=== PATIENT | female | born 1985 ===

== ENCOUNTER 2021-03-06 14:03 | Inpatient (IN) | payer OTHER, SELFPAY ==
[2021-03-06] VITALS (8 sets, daily range): BP systolic 115–1122; BP diastolic 61–68; PULSE 89–123; RESP 16–19; TEMP 36.9–37.4; O2SAT 99–100; BMI 31.3
--- NOTE | ~2021-03-06 | CT_ITS ---
EXAMINATION: CT ABDOMEN AND PELVIS WITH CONTRAST CLINICAL INFORMATION: left sided abd pain, melena, high fever COMPARISON: None TECHNIQUE: Multidetector volumetric images were obtained from the superior aspect of the liver through the pubic symphysis following administration 85 mL of Omnipaque 350 intravenous contrast. Sagittal and coronal reformatted images were obtained on the technologist's workstation. Oral contrast: No This CT examination was performed using dose optimization techniques as appropriate, variously including the following: *Automated exposure control *Adjustment of mA and/or kV according to patient size (this includes techniques or standardized protocols for targeted exams where dose is matched to indication/reason for exam; i.e. extremities or head) *Use of iterative reconstruction technique DLP: 622 mGy-cm FINDINGS: LUNG BASES: Mild dependent atelectasis. LIVER, GALLBLADDER, AND BILIARY TREE: The liver is normal in size, shape, and attenuation. No focal hepatic lesion or biliary ductal dilatation is present. The gallbladder is unremarkable with no evidence of radiopaque gallstones, gallbladder wall thickening, or obvious pericholecystic inflammatory changes. PANCREAS: Unremarkable. SPLEEN: Measures 14.7 cm in diameter, consistent with splenomegaly, relatively mild. No focal abnormalities. ADRENAL GLANDS: Unremarkable. KIDNEYS AND URETERS: The kidneys are normal in size, shape, and attenuation. No calculi. No perinephric stranding. Prominence of the bilateral extrarenal pelvises no hydronephrosis or hydroureter. BLADDER: Unremarkable. GASTROINTESTINAL TRACT: Status post Michelle-en-Y gastric bypass. Stomach, small bowel, and colon are nondistended. There is very mild generalized colonic wall thickening with calcific and surrounding fat stranding. Appendix is normal. Air-fluid levels are present in the colon, indicative of liquid stool. No intraperitoneal free air. No significant intraperitoneal free fluid. ABDOMINAL WALL: No significant hernia is appreciated. LYMPH NODES: Numerous subcentimeter mesenteric lymph nodes are identified measuring up to 0.9 cm in diameter (short axis). No significant retroperitoneal adenopathy. VASCULAR: Unremarkable. PELVIC VISCERA: Uterus is normal in size. Bilateral Essure devices are present in the following tubes. No adnexal lesions are identified. OSSEOUS STRUCTURES: Minimal degenerative spondylosis and lumbar spine. No acute osseous findings. Mild left convex curvature. CT/CT abdomen pelvis w con IMPRESSION: 1. Very mild colonic wall thickening with with stool throughout the large bowel, potentially due to a mild enterocolitis. Inflammatory causes are also possible. No abscess. Prominent mesenteric lymph nodes may be reactive in nature. 2. Borderline splenomegaly.
[2021-03-06 16:26] LABS: Glucose Urine UA NEG (NEG); Leukocyte Esterase Urine NEG (NEG); Nitrite Urine NEG (NEG); Specific Gravity - Urine >= 1.030 (1.005-1.025); Urine Blood 2+ (NEG); Urine Ketones 5 MG/DL (NEG); Urine Protein 2+ MG/DL (NEG-TRACE)
[2021-03-06 16:33] LABS: Appearance Urine CLEAR; Color Urine YELLOW
[2021-03-06 16:44] LABS: UACC CULT YES
[2021-03-06 16:45] LABS: Alanine Aminotransferase 6 U/L (0-31); Albumin Level 4.1 g/dL (3.5-5.0); Alkaline Phosphatase 104 U/L (39-117); Anion Gap 16 (12-20); Aspartate Amino Transferase 18 U/L (5-31); Bacteria Urine 1+ /LPF; Bilirubin Direct 0.5 mg/dL (0.0-0.5); Bilirubin Total 1.3 mg/dL (0.0-1.0); Blood Urea Nitrogen 7 mg/dL (9-16); Calcium 8.8 mg/dL (8.4-10.2); Carbon Dioxide 21 mmol/L (22-29); Chloride 102 mmol/L (96-108); Creatinine Clr Calc Pharmacy 115.6; Estimated Glomerular Filt Rate > 60; Glucose Random 106 mg/dL (60-115); Hematocrit 27.6 % (37-47); Imm Gran Abs Auto 0.03 X10*3/uL (0.00-0.03); Imm Gran Pct Auto 0.4 % (0.0-0.4); Lipase 13 U/L (8-78); MANUAL DIFF FLAG SCAN; Mucus Urine 1+ /LPF; Neutrophils Percent Auto 76.9 % (45-73); Potassium 3.9 mmol/L (3.3-5.1); SCAN SMEAR FLAG 1; Sodium 135 mmol/L (135-145); Squamous Epithelial Cell Urine 4+ /LPF; Total Protein 6.9 g/dL (6.5-8.0); UPreg QC Valid YES; Urine Pregnancy NEGATIVE (NEGATIVE)
[2021-03-06 16:47] LABS: Basophils Percent Auto 0.2 % (0-2); Lymphocytes Absolute Auto 1.1 X10*3/uL (1.2-4.9); Lymphocytes Percent Auto 13.2 % (20-40); Mean Corpuscular HGB Conc 24.6 g/dl (31.0-35.0); Mean Corpuscular Hemoglobin 15.1 pg (27.0-33.0); Monocytes Absolute Auto 0.8 X10*3/uL (0.1-1.2); Monocytes Percent Auto 9.3 % (2-11); Neutrophils Absolute Auto 6.4 X10*3/uL (2.0-8.3); Platelet Count 320 X10*3/uL (160-400); Red Cell Distribution Width 20.1 % (11.0-16.0); White Blood Count 8.4 X10*3/uL (4.8-10.8)
[2021-03-06 16:49] LABS: COVID-19 Test Negative (Negative); IDNOW Serial# 9DD0AD1C
[2021-03-06 16:55] LABS: Mean Corpuscular Volume 61.3 fL (80-98)
[2021-03-06 16:57] LABS: Hemoglobin 6.8 g/dl (12.0-16.0); PLT ABN DIST 1
--- NOTE | 2021-03-06 17:20 | ED.ABDPAIN ---
HPI - Abdominal Pain General Chief Complaint: Abdominal Pain Stated Complaint: fever/nausea/vomiting/ Time Seen by Provider: 03/06/21 17:05 Source: patient Mode of arrival: ambulatory Limitations: no limitations History of Present Illness HPI narrative: 35 y/o female with history of gastric bypass in 2011 who presents to the ER with severe left sided abdominal pain and multiple episodes of black diarrhea that woke her up out of sleep at 3am yesterday. She states anytime she tries to eat or drinking anything she has watery black stool. She also reports fevers at home the last 2 days, as high as 105 (on temporal thermometer). She took Tylenol with improvement in the fever. She denies being on any blood thinners or aspirin, she does not take NSAIDS. She does not drink alcohol. She has never had any GI bleeding in the past. She denies any nausea or vomiting. MD elicited complaint: abdominal pain Pertinent past history: none Onset (ago): day(s) (2) Pain Consistency: constant Location: LUQ and LLQ Severity: moderate Pain scale (0-10): 7 Quality: stabbing Radiation: none Migration to: no migration Exacerbating factors: eating Relieving factors: nothing Associated symptoms: diarrhea and fever Related Data Home Medications Medication Instructions Recorded Confirmed No Known Home Meds 03/06/21 03/06/21 Allergies Allergy/AdvReac Type Severity Reaction Status Date / Time No Known Allergies Allergy Unverified 05/18/20 19:07 [No Known Allergies*] Review of Systems Review of Systems Constitutional: No Fever, No Chills ENT/Mouth: No sore throat, No Rhinorrhea, No Swallowing Difficulty Cardiovascular: No Chest Pain, + SOB Respiratory: No Cough, No Sputum, No Wheezing, No dyspnea Gastrointestinal: No Nausea, No Vomiting, + Diarrhea, + abdominal Pain, No Hematochezia, + Melena Genitourinary: No Dysuria, No Urinary Frequency, No Hematuria Musculoskeletal: No joint pain, No Myalgias Skin: No Skin Lesions, No rash Neuro: + Weakness, No Numbness, No Dizziness, No Headache Psych: + Anxiety/Panic, No Depression Heme/Lymph: No Bruising, No Lymphadenopathy Endocrine: No Polyuria, No Polydipsia Physical Exam Vital Signs: Vital Signs: Last Vital Signs Temp 99.4 F 03/06/21 14:37 Pulse 123 H 03/06/21 14:37 Resp 16 03/06/21 19:32 BP 115/68 03/06/21 14:37 Pulse Ox 100 03/06/21 14:37 Body Mass Index 31.3 Appearance: Alert. Oriented X3. No acute distress. Eyes: Pupils equal, round and reactive to light. Conjunctival pallor ENT: Pharynx normal. Neck: Normal inspection. Neck supple. CVS: Tachycardic, regular rhythm. Pulses normal. Respiratory: No respiratory distress. Breath sounds normal. Abdomen: Soft with moderate left sided tenderness, no rebound or guarding. +BS x4 Skin: Skin warm and dry. Normal skin color. Normal skin turgor. No rashes. Extremities: No lower extremity edema. Neuro: Oriented X 3. No motor deficit. No sensory deficit. Course Course Course Narrative: 35 y/o female presenting with melena, left sided abdominal pain and fevers at home x2 days. Tachycardic to 120s on arrival with stable BP. She is pale. Blood work obtained while in the waiting room and she was found to have a hemoglobin of 6.8. Her baseline H/H from 3 years ago 7.3/25.6. Will plan to transfuse PRBC, check iron studies, CT scan abd/pelvis with contrast for pain and fevers. Concern is for UGIB. IV Protonix ordered and GI (Dr. Gonzalez) has been contacted - recommending transfuse to Hgb 8 with EGD/colonoscopy tomorrow. Reevaluation(s) Reevaluation #1: Pain improved with IV dilaudid. Receiving PRBC now. Lactic acid normal and HR improved with pain control and IVF. CT scan showing very mild colonic wall thickening with stool throughout the colon, mild enterocolitis, inflammatory causes also possible. No abscess. Will give IV rocephin and Flagyl for colitis. Spoke with Dr. Mccord who will admit the patient for further management. Consultations Consultation #1: Dr. Gonzalez - GI MDM - Abdominal Pain Lab Data Result diagrams: 03/06/21 16:15 03/06/21 16:15 Labs: Lab Results 03/06/21 03/06/21 03/06/21 Range/Units 16:15 16:15 16:15 WBC 8.4 (4.8-10.8) X10*3/uL RBC 4.50 (4.20-5.50) X10*6/uL Hgb 6.8 L* (12.0-16.0) g/dl Hct 27.6 L (37-47) % MCV 61.3 L (80-98) fL MCH 15.1 L (27.0-33.0) pg MCHC 24.6 L (31.0-35.0) g/dl RDW 20.1 H (11.0-16.0) % Plt Count 320 (160-400) X10*3/uL MPV Not Reportable Immature Gran % (Auto) 0.4 (0.0-0.4) % Neut % (Auto) 76.9 H (45-73) % Lymph % (Auto) 13.2 L (20-40) % [place] % (Auto) 9.3 (2-11) % Eos % (Auto) 0.0 (0-4) % Baso % (Auto) 0.2 (0-2) % Lymph # (Auto) 1.1 L (1.2-4.9) X10*3/uL [place] # (Auto) 0.8 (0.1-1.2) X10*3/uL Eos # (Auto) 0.0 (0.0-0.4) X10*3/uL Baso # (Auto) 0.0 (0.0-0.2) X10*3/uL Abs Immat Gran (auto) 0.03 (0.00-0.03) X10*3/uL Absolute Neuts (auto) 6.4 (2.0-8.3) X10*3/uL Absolute Nucleated RBC 0.000 (0.0-0.012) X10*3/uL Nucleated RBC % (auto) 0.0 (0.0-0.2) /100WBC Smear Tech's Comments VERIFIED ESR (0-20) MM/HR Absolute Retic (0.026-0.095) X10*6/uL Percent Retic (0.5-1.8) % Immature Retic Fraction (3.0-15.9) % Retic Hgb Equivalent (30.0-35.0) pg Sodium 135 (135-145) mmol/L Potassium 3.9 (3.3-5.1) mmol/L Chloride 102 (96-108) mmol/L Carbon Dioxide 21 L (22-29) mmol/L Anion Gap 16 (12-20) BUN 7 L (9-16) mg/dL Creatinine 0.77 (0.5-1.4) mg/dL Estim Creat Clear Calc 115.6 Estimated GFR > 60 Random Glucose 106 (60-115) mg/dL Lactic Acid (0.5-2.0) mmol/L Calcium 8.8 (8.4-10.2) mg/dL Iron 9 L (30-160) mcg/dL TIBC 523 H (228-428) mcg/dL % Saturation 2 L (15-50) % Unsat Iron Binding 514 ug/dL Total Bilirubin 1.3 H (0.0-1.0) mg/dL Direct Bilirubin 0.5 (0.0-0.5) mg/dL AST 18 (5-31) U/L ALT 6 (0-31) U/L Alkaline Phosphatase 104 (39-117) U/L C-Reactive Protein 16.99 H (< or = 0.50) mg/dL Total Protein 6.9 (6.5-8.0) g/dL Albumin 4.1 (3.5-5.0) g/dL Lipase 13 (8-78) U/L Urine Color Urine Appearance Urine pH (5.0-8.0) Ur Specific [place] (1.005-1.025) Urine Protein (NEG-TRACE) MG/DL Urine Glucose (UA) (NEG) MG/DL Urine Ketones (NEG) MG/DL Urine Blood (NEG) Urine Nitrite (NEG) Ur Leukocyte Esterase (NEG) Urine RBC (0) /HPF Urine WBC (0-4) /HPF Ur Squamous Epith Cells /LPF Urine Bacteria /LPF Urine Mucus /LPF Urine Test (NEGATIVE) Stool Collect Date Stool Occult Blood Stool 2 Collect Date Stool Occult Blood #2 Stool 3 Collect Date Stool Occult Blood #3 COVID-19 ([place]) Negative (Negative) COVID-19 Clin Com See Note Blood Type Antibody Screen Crossmatch 03/06/21 03/06/21 03/06/21 Range/Units 16:15 16:15 16:15 WBC (4.8-10.8) X10*3/uL RBC (4.20-5.50) X10*6/uL Hgb (12.0-16.0) g/dl Hct (37-47) % MCV (80-98) fL MCH (27.0-33.0) pg MCHC (31.0-35.0) g/dl RDW (11.0-16.0) % Plt Count (160-400) X10*3/uL MPV Immature Gran % (Auto) (0.0-0.4) % Neut % (Auto) (45-73) % Lymph % (Auto) (20-40) % [place] % (Auto) (2-11) % Eos % (Auto) (0-4) % Baso % (Auto) (0-2) % Lymph # (Auto) (1.2-4.9) X10*3/uL [place] # (Auto) (0.1-1.2) X10*3/uL Eos # (Auto) (0.0-0.4) X10*3/uL Baso # (Auto) (0.0-0.2) X10*3/uL Abs Immat Gran (auto) (0.00-0.03) X10*3/uL Absolute Neuts (auto) (2.0-8.3) X10*3/uL Absolute Nucleated RBC (0.0-0.012) X10*3/uL Nucleated RBC % (auto) (0.0-0.2) /100WBC Smear Tech's Comments ESR (0-20) MM/HR Absolute Retic 0.054 (0.026-0.095) X10*6/uL Percent Retic 1.2 (0.5-1.8) % Immature Retic Fraction 24.9 H (3.0-15.9) % Retic Hgb Equivalent 14.6 L (30.0-35.0) pg Sodium (135-145) mmol/L Potassium (3.3-5.1) mmol/L Chloride (96-108) mmol/L Carbon Dioxide (22-29) mmol/L Anion Gap (12-20) BUN (9-16) mg/dL Creatinine (0.5-1.4) mg/dL Estim Creat Clear Calc Estimated GFR Random Glucose (60-115) mg/dL Lactic Acid (0.5-2.0) mmol/L Calcium (8.4-10.2) mg/dL Iron (30-160) mcg/dL TIBC (228-428) mcg/dL % Saturation (15-50) % Unsat Iron Binding ug/dL Total Bilirubin (0.0-1.0) mg/dL Direct Bilirubin (0.0-0.5) mg/dL AST (5-31) U/L ALT (0-31) U/L Alkaline Phosphatase (39-117) U/L C-Reactive Protein (< or = 0.50) mg/dL Total Protein (6.5-8.0) g/dL Albumin (3.5-5.0) g/dL Lipase (8-78) U/L Urine Color YELLOW Urine Appearance CLEAR Urine pH 6.0 (5.0-8.0) Ur Specific [place] >= 1.030 H (1.005-1.025) Urine Protein 2+ H (NEG-TRACE) MG/DL Urine Glucose (UA) NEG (NEG) MG/DL Urine Ketones 5 (NEG) MG/DL Urine Blood 2+ H (NEG) Urine Nitrite NEG (NEG) Ur Leukocyte Esterase NEG (NEG) Urine RBC 1-4 (0) /HPF Urine WBC 5-9 H (0-4) /HPF Ur Squamous Epith Cells 4+ /LPF Urine Bacteria 1+ /LPF Urine Mucus 1+ /LPF Urine Test NEGATIVE (NEGATIVE) Stool Collect Date Stool Occult Blood Stool 2 Collect Date Stool Occult Blood #2 Stool 3 Collect Date Stool Occult Blood #3 COVID-19 ([place]) (Negative) COVID-19 Clin Com Blood Type Antibody Screen Crossmatch 03/06/21 03/06/21 03/06/21 Range/Units 17:25 17:50 18:03 WBC (4.8-10.8) X10*3/uL RBC (4.20-5.50) X10*6/uL Hgb (12.0-16.0) g/dl Hct (37-47) % MCV (80-98) fL MCH (27.0-33.0) pg MCHC (31.0-35.0) g/dl RDW (11.0-16.0) % Plt Count (160-400) X10*3/uL MPV Immature Gran % (Auto) (0.0-0.4) % Neut % (Auto) (45-73) % Lymph % (Auto) (20-40) % [place] % (Auto) (2-11) % Eos % (Auto) (0-4) % Baso % (Auto) (0-2) % Lymph # (Auto) (1.2-4.9) X10*3/uL [place] # (Auto) (0.1-1.2) X10*3/uL Eos # (Auto) (0.0-0.4) X10*3/uL Baso # (Auto) (0.0-0.2) X10*3/uL Abs Immat Gran (auto) (0.00-0.03) X10*3/uL Absolute Neuts (auto) (2.0-8.3) X10*3/uL Absolute Nucleated RBC (0.0-0.012) X10*3/uL Nucleated RBC % (auto) (0.0-0.2) /100WBC Smear Tech's Comments ESR 12 (0-20) MM/HR Absolute Retic (0.026-0.095) X10*6/uL Percent Retic (0.5-1.8) % Immature Retic Fraction (3.0-15.9) % Retic Hgb Equivalent (30.0-35.0) pg Sodium (135-145) mmol/L Potassium (3.3-5.1) mmol/L Chloride (96-108) mmol/L Carbon Dioxide (22-29) mmol/L Anion Gap (12-20) BUN (9-16) mg/dL Creatinine (0.5-1.4) mg/dL Estim Creat Clear Calc Estimated GFR Random Glucose (60-115) mg/dL Lactic Acid 1.2 (0.5-2.0) mmol/L Calcium (8.4-10.2) mg/dL Iron (30-160) mcg/dL TIBC (228-428) mcg/dL % Saturation (15-50) % Unsat Iron Binding ug/dL Total Bilirubin (0.0-1.0) mg/dL Direct Bilirubin (0.0-0.5) mg/dL AST (5-31) U/L ALT (0-31) U/L Alkaline Phosphatase (39-117) U/L C-Reactive Protein (< or = 0.50) mg/dL Total Protein (6.5-8.0) g/dL Albumin (3.5-5.0) g/dL Lipase (8-78) U/L Urine Color Urine Appearance Urine pH (5.0-8.0) Ur Specific [place] (1.005-1.025) Urine Protein (NEG-TRACE) MG/DL Urine Glucose (UA) (NEG) MG/DL Urine Ketones (NEG) MG/DL Urine Blood (NEG) Urine Nitrite (NEG) Ur Leukocyte Esterase (NEG) Urine RBC (0) /HPF Urine WBC (0-4) /HPF Ur Squamous Epith Cells /LPF Urine Bacteria /LPF Urine Mucus /LPF Urine Test (NEGATIVE) Stool Collect Date Stool Occult Blood Stool 2 Collect Date Stool Occult Blood #2 Stool 3 Collect Date Stool Occult Blood #3 COVID-19 ([place]) (Negative) COVID-19 Clin Com Blood Type A Positive Antibody Screen NEGATIVE Crossmatch See Detail 03/06/21 03/06/21 Range/Units 18:03 18:03 WBC (4.8-10.8) X10*3/uL RBC (4.20-5.50) X10*6/uL Hgb (12.0-16.0) g/dl Hct (37-47) % MCV (80-98) fL MCH (27.0-33.0) pg MCHC (31.0-35.0) g/dl RDW (11.0-16.0) % Plt Count (160-400) X10*3/uL MPV Immature Gran % (Auto) (0.0-0.4) % Neut % (Auto) (45-73) % Lymph % (Auto) (20-40) % [place] % (Auto) (2-11) % Eos % (Auto) (0-4) % Baso % (Auto) (0-2) % Lymph # (Auto) (1.2-4.9) X10*3/uL [place] # (Auto) (0.1-1.2) X10*3/uL Eos # (Auto) (0.0-0.4) X10*3/uL Baso # (Auto) (0.0-0.2) X10*3/uL Abs Immat Gran (auto) (0.00-0.03) X10*3/uL Absolute Neuts (auto) (2.0-8.3) X10*3/uL Absolute Nucleated RBC (0.0-0.012) X10*3/uL Nucleated RBC % (auto) (0.0-0.2) /100WBC Smear Tech's Comments ESR (0-20) MM/HR Absolute Retic (0.026-0.095) X10*6/uL Percent Retic (0.5-1.8) % Immature Retic Fraction (3.0-15.9) % Retic Hgb Equivalent (30.0-35.0) pg Sodium (135-145) mmol/L Potassium (3.3-5.1) mmol/L Chloride (96-108) mmol/L Carbon Dioxide (22-29) mmol/L Anion Gap (12-20) BUN (9-16) mg/dL Creatinine (0.5-1.4) mg/dL Estim Creat Clear Calc Estimated GFR Random Glucose (60-115) mg/dL Lactic Acid (0.5-2.0) mmol/L Calcium (8.4-10.2) mg/dL Iron (30-160) mcg/dL TIBC (228-428) mcg/dL % Saturation (15-50) % Unsat Iron Binding ug/dL Total Bilirubin (0.0-1.0) mg/dL Direct Bilirubin (0.0-0.5) mg/dL AST (5-31) U/L ALT (0-31) U/L Alkaline Phosphatase (39-117) U/L C-Reactive Protein (< or = 0.50) mg/dL Total Protein (6.5-8.0) g/dL Albumin (3.5-5.0) g/dL Lipase (8-78) U/L Urine Color Urine Appearance Urine pH (5.0-8.0) Ur Specific [place] (1.005-1.025) Urine Protein (NEG-TRACE) MG/DL Urine Glucose (UA) (NEG) MG/DL Urine Ketones (NEG) MG/DL Urine Blood (NEG) Urine Nitrite (NEG) Ur Leukocyte Esterase (NEG) Urine RBC (0) /HPF Urine WBC (0-4) /HPF Ur Squamous Epith Cells /LPF Urine Bacteria /LPF Urine Mucus /LPF Urine Test (NEGATIVE) Stool Collect Date Cancelled Stool Occult Blood Cancelled NEGATIVE Stool 2 Collect Date Cancelled Stool Occult Blood #2 Cancelled Stool 3 Collect Date Cancelled Stool Occult Blood #3 Cancelled COVID-19 ([place]) (Negative) COVID-19 Clin Com Blood Type Antibody Screen Crossmatch Critical Care Time Critical Care Time Critical Care Time: Yes Total Critical Care Time: 42 Attestation: I have personally provided critical care time exclusive of time spent on separately billable procedures. Time includes review of lab data, radiology results, discussion with consultants, and monitoring for potential decompensation. Intervention performed as documented. Discharge Plan Discharge Clinical Impression: Acute blood loss anemia, Enterocolitis Patient Disposition: Admitted As Inpatient [facility] Past Medical History Attestation statement: The following information was validated with the patient. Surgical History (Updated 03/06/21 @ 14:40 by Tra Concepcion) Gastric bypass status for obesity Social History Social History Advance Directives: No Advance Directives Information Provided: No Patient : No
[2021-03-06] MEDS: Pantoprazole Sodium 40 MG/10 ML VIAL IVPUSH (17:25)
[2021-03-06] MEDS: HYDROmorphone HCl 0.5 MG/0.5 ML SYRINGE IVPUSH ×2 (17:25→19:40)
[2021-03-06 17:27] LABS: SLIDE REVIEW VERIFIED
[2021-03-06 17:49] LABS: C Reactive Protein 16.99 mg/dL (< or = 0.50); Iron 9 mcg/dL (30-160); Percent Iron Saturation 2 % (15-50); Total Iron Binding Capacity 523 mcg/dL (228-428); Unsaturated Iron Binding 514 ug/dL
[2021-03-06 17:50] LABS: Immature Retic Fraction 24.9 % (3.0-15.9); Retic HGB Equivalent 14.6 pg (30.0-35.0); Reticulocyte Percent 1.2 % (0.5-1.8); Reticulocytes Absolute 0.054 X10*6/uL (0.026-0.095)
[2021-03-06 18:01] LABS: Lactic Acid 1.2 mmol/L (0.5-2.0)
[2021-03-06] MEDS: 0.9 % Sodium Chloride 1,000 ML 999 ML IVCONT (18:10)
[2021-03-06 18:51] LABS: OBS Int Ctl Valid YES; OBS1 NEGATIVE (NEGATIVE)
[2021-03-06 19:11] LABS: Erythrocyte Sedimentation Rate 12 MM/HR (0-20)
--- NOTE | 2021-03-06 19:15 | PC.NURSE ---
assumed care of pt. pt resting in stretcher just returning from ct. pt denies any complaints at time. pt awaiting for pending orders. will continue to monitor pt.
--- NOTE | 2021-03-06 19:27 | PHA.MEDREC ---
Pharmacy Consult ? Medication Reconciliation Pharmacy has completed the medication reconciliation.Pt denies any regular meds.
[2021-03-06] MEDS: iohexoL 350 MG/ML 100 ML INFUS..BTL IV (19:42)
--- NOTE | 2021-03-06 20:00 | PC.NURSE ---
PT ON MONITOR WITH HR 104. PT AWAITING FOR BLOOD. PT C/O ABD PAIN AND MEDICATED PER EMAR FOR ABD PAIN 05/11.
[2021-03-06] MEDS: metroNIDAZOLE/NS 500 MG/100 ML PIGGYBACK 100 MG IV (20:20)
[2021-03-06] MEDS: cefTRIAXone sodium 1 GM in 0.9 % Sodium Chloride 50 ML IV (20:24)
--- NOTE | 2021-03-06 21:45 | PC.NURSE ---
1 UNIT OF PRBC INFUSING PER ORDERS. PT DENIES ANY COMPLAINTS OR REACTIONS TO BLOOD. PT NERVOUS ABOUT GETTING BLOOD AND IS REASSURED. PT STATES I FEEL BETTER NOW . WILL CONTINUE TO MONITOR PT.
--- NOTE | 2021-03-06 22:02 | P.HPHOSP_ITS ---
History of Present Illness Date of Service: 03/06/21 Chief Complaint: Nausea /abdominal pain /diarrhea 35-year-old female with no significant past medical history presented to the hospital with a chief complaint of nausea vomiting and abdominal discomfort. Patient reported that she has been having nausea vomiting and loose stools over the past couple days and noted to have left-sided abdominal pain. Denies any numbness tingling. Reports her stool is black in color. Denies any chest pain or palpitations. Denies any urinary symptoms. Denies being on antibiotics are taking [id number] pain medications. Patient reports her menstrual cycles are regular, denies any excessive bleeding. Review of all other systems is negative except mentioned above ER course: Per ER team patient noted to have left-sided abdominal tenderness, CT scan showed enterocolitis. Given antibiotics. On the last patient also noted to have anemia with hemoglobin 6.8. Stool guaiac was negative. Patient being transfused blood. ER team also spoke to Dr. Taylor from Gastroenterology and plan for endoscopy tomorrow morning. PMFSH Family History Mother Hypertension Surgical History Gastric bypass status for obesity Social History Household Members: Spouse and Children Housing: Apartment Do you presently have visiting nurse or other home services: No Alcohol intake: never Patient Tobacco Use Status: Never used Tobacco e-Cigarette/Vaping Use: Never Used Second Hand Smoke Exposure: No service: No Current occupational status: employed Current occupational exposures/hazards: No Meds Allergies Allergy/AdvReac Type Severity Reaction Status Date / Time No Known Allergies Allergy Verified 03/21/21 13:17 [No Known Allergies*] Active Medications: Current Medications Generic Name Dose Route Start Last Admin Trade Name Freq PRN Reason Stop Dose Admin Acetaminophen 650 mg 03/06/21 21:57 Acetaminophen 325 Mg Tablet PO Q6H PRN Pain, Mild (Pain Scale 1-3) Dextrose/Sodium Chloride 1,000 mls @ 100 mls/hr 03/06/21 22:00 D51/2ns IVCONT .Q10H SUNDAY Metronidazole 500 mg in 100 mls @ 100 mls/hr 03/06/21 22:00 Flagyl IV Q8H [facility] Ceftriaxone Sodium 1 gm/ 50 mls @ 100 mls/hr 03/06/21 22:00 Sodium Chloride IV Q24H [facility] Melatonin 6 mg 03/06/21 21:57 Melatonin 3 Mg Tablet PO BEDTIME PRN Insomnia Ondansetron HCl 4 mg 03/06/21 21:57 Ondansetron Hcl 4 Mg/2 Ml Vial IVPUSH Q8H PRN Nausea and Vomiting Pharmacy Consult 1 each 03/06/21 17:20 Consult Rx Perform Med Rec MISCELLANE ONCE PRN Consult order Sodium Chloride 3 ml 03/07/21 00:00 0.9 % Sodium Chloride Flush 3 Ml Syringe IVFLUSH QSHIFT [facility] Physical Exam Vital Signs and Narrative: Vital Signs: Last Vital Signs Temp 98.8 F 03/06/21 22:02 Pulse 101 H 03/06/21 22:02 Resp 16 03/06/21 22:02 BP 121/67 03/06/21 22:02 Pulse Ox 99 03/06/21 21:50 Body Mass Index 31.3 Gen: Appears be in no acute distress HEENT: NCAT, Moist mucosa. Pulmonary: Vesicular breath sounds, fair air entry CVS: Normal S1-S2 Abdomen: BS+, Soft, Mildly tender in the left lower quadrant: No guarding no rigidity. Extremities: Warm well perfused Neuro: Alert and awake. Results Labs CBC and Chem 7: 03/08/21 05:53 03/08/21 05:53 Labs: Laboratory Results - last 24 hr 03/06/21 03/06/21 03/06/21 16:15 16:15 16:15 MCV 61.3 L MCH 15.1 L MCHC 24.6 L RDW 20.1 H Plt Count 320 MPV Not Reportable Immature Gran % (Auto) 0.4 Neut % (Auto) 76.9 H Lymph % (Auto) 13.2 L [place] % (Auto) 9.3 Eos % (Auto) 0.0 Baso % (Auto) 0.2 Lymph # (Auto) 1.1 L [place] # (Auto) 0.8 Eos # (Auto) 0.0 Baso # (Auto) 0.0 Abs Immat Gran (auto) 0.03 Absolute Neuts (auto) 6.4 Absolute Nucleated RBC 0.000 Nucleated RBC % (auto) 0.0 Smear Tech's Comments VERIFIED ESR Absolute Retic Percent Retic Immature Retic Fraction Retic Hgb Equivalent Anion Gap 16 Estim Creat Clear Calc 115.6 Estimated GFR > 60 Random Glucose 106 Lactic Acid Calcium 8.8 Iron 9 L TIBC 523 H % Saturation 2 L Unsat Iron Binding 514 Total Bilirubin 1.3 H Direct Bilirubin 0.5 AST 18 ALT 6 Alkaline Phosphatase 104 C-Reactive Protein 16.99 H Total Protein 6.9 Albumin 4.1 Lipase 13 Urine Color Urine Appearance Urine pH Ur Specific [place] Urine Protein Urine Glucose (UA) Urine Ketones Urine Blood Urine Nitrite Ur Leukocyte Esterase Urine RBC Urine WBC Ur Squamous Epith Cells Urine Bacteria Urine Mucus Urine Test Stool Collect Date Stool Occult Blood Stool 2 Collect Date Stool Occult Blood #2 Stool 3 Collect Date Stool Occult Blood #3 COVID-19 ([place]) Negative [id number] See Note Blood Type Antibody Screen Crossmatch 03/06/21 03/06/21 03/06/21 16:15 16:15 16:15 MCV MCH MCHC RDW Plt Count MPV Immature Gran % (Auto) Neut % (Auto) Lymph % (Auto) [place] % (Auto) Eos % (Auto) Baso % (Auto) Lymph # (Auto) [place] # (Auto) Eos # (Auto) Baso # (Auto) Abs Immat Gran (auto) Absolute Neuts (auto) Absolute Nucleated RBC Nucleated RBC % (auto) Smear Tech's Comments ESR Absolute Retic 0.054 Percent Retic 1.2 Immature Retic Fraction 24.9 H Retic Hgb Equivalent 14.6 L Anion Gap Estim Creat Clear Calc Estimated GFR Random Glucose Lactic Acid Calcium Iron TIBC % Saturation Unsat Iron Binding Total Bilirubin Direct Bilirubin AST ALT Alkaline Phosphatase C-Reactive Protein Total Protein Albumin Lipase Urine Color YELLOW Urine Appearance CLEAR Urine pH 6.0 Ur Specific [place] >= 1.030 H Urine Protein 2+ H Urine Glucose (UA) NEG Urine Ketones 5 Urine Blood 2+ H Urine Nitrite NEG Ur Leukocyte Esterase NEG Urine RBC 1-4 Urine WBC 5-9 H Ur Squamous Epith Cells 4+ Urine Bacteria 1+ Urine Mucus 1+ Urine Test NEGATIVE Stool Collect Date Stool Occult Blood Stool 2 Collect Date Stool Occult Blood #2 Stool 3 Collect Date Stool Occult Blood #3 COVID-19 ([place]) COVID-19 [employer] Com Blood Type Antibody Screen Crossmatch 03/06/21 03/06/21 03/06/21 17:25 17:50 18:03 MCV MCH MCHC RDW Plt Count MPV Immature Gran % (Auto) Neut % (Auto) Lymph % (Auto) [place] % (Auto) Eos % (Auto) Baso % (Auto) Lymph # (Auto) [place] # (Auto) Eos # (Auto) Baso # (Auto) Abs Immat Gran (auto) Absolute Neuts (auto) Absolute Nucleated RBC Nucleated RBC % (auto) Smear Tech's Comments ESR 12 Absolute Retic Percent Retic Immature Retic Fraction Retic Hgb Equivalent Anion Gap Estim Creat Clear Calc Estimated GFR Random Glucose Lactic Acid 1.2 Calcium Iron TIBC % Saturation Unsat Iron Binding Total Bilirubin Direct Bilirubin AST ALT Alkaline Phosphatase C-Reactive Protein Total Protein Albumin Lipase Urine Color Urine Appearance Urine pH Ur Specific [place] Urine Protein Urine Glucose (UA) Urine Ketones Urine Blood Urine Nitrite Ur Leukocyte Esterase Urine RBC Urine WBC Ur Squamous Epith Cells Urine Bacteria Urine Mucus Urine Test Stool Collect Date Stool Occult Blood Stool 2 Collect Date Stool Occult Blood #2 Stool 3 Collect Date Stool Occult Blood #3 COVID-19 ([place]) COVID-19 [employer] Com Blood Type A Positive Antibody Screen NEGATIVE Crossmatch See Detail 03/06/21 03/06/21 18:03 18:03 MCV MCH MCHC RDW Plt Count MPV Immature Gran % (Auto) Neut % (Auto) Lymph % (Auto) [place] % (Auto) Eos % (Auto) Baso % (Auto) Lymph # (Auto) [place] # (Auto) Eos # (Auto) Baso # (Auto) Abs Immat Gran (auto) Absolute Neuts (auto) Absolute Nucleated RBC Nucleated RBC % (auto) Smear Tech's Comments ESR Absolute Retic Percent Retic Immature Retic Fraction Retic Hgb Equivalent Anion Gap Estim Creat Clear Calc Estimated GFR Random Glucose Lactic Acid Calcium Iron TIBC % Saturation Unsat Iron Binding Total Bilirubin Direct Bilirubin AST ALT Alkaline Phosphatase C-Reactive Protein Total Protein Albumin Lipase Urine Color Urine Appearance Urine pH Ur Specific [place] Urine Protein Urine Glucose (UA) Urine Ketones Urine Blood Urine Nitrite Ur Leukocyte Esterase Urine RBC Urine WBC Ur Squamous Epith Cells Urine Bacteria Urine Mucus Urine Test Stool Collect Date Cancelled Stool Occult Blood Cancelled NEGATIVE Stool 2 Collect Date Cancelled Stool Occult Blood #2 Cancelled Stool 3 Collect Date Cancelled Stool Occult Blood #3 Cancelled COVID-19 ([place]) COVID-19 [employer] Com Blood Type Antibody Screen Crossmatch Imaging Radiologist's Impressions: Impressions Abdomen/Pelvis CT 03/06/21 17:15 IMPRESSION: 1. Very mild colonic wall thickening with with stool throughout the large bowel, potentially due to a mild enterocolitis. Inflammatory causes are also possible. No abscess. Prominent mesenteric lymph nodes may be reactive in nature. 2. Borderline splenomegaly. Assessment and Plan (1) Enterocolitis: Status: Acute 35-year-old female with no significant past medical history presented to the hospital with a chief complaint of nausea /abdominal pain noted to have enterocolitis and anemia. Admitted for further management. enterocolitis: Continue ceftriaxone and Flagyl. NPO. IV fluids. Anemia: Stool guaiac was negative. Patient reports normal menstrual cycles with no excessive bleeding. Patient being transfused blood in the ER. Monitor levels. Patient does report black stools at home. GI was notified -recommended NPO for possible endoscopy tomorrow morning. IV ppi DVT prophylaxis: SCD boots Code status: Full code Quality Stroke Does the patient have a stroke diagnosis?: No VTE Prior VTE?: No VTE Risk Level:: Medical - moderate - high VTE Device Contraindication: N/A - Device Ordered VTE Drug Contraindication: Treatment Not Tolerated
--- NOTE | 2021-03-06 23:28 | PC.NURSE ---
PT DENIES ANY COMPLAINTS AND BLOOD CONTINUE TO INFUSE W/O DIFFICULTY. PT IS REQUESTING FOOD/DRINK AND IS AWARE SHE IS NPO. WILL CONTINUE TO MONITOR PT.
--- NOTE | 2021-03-06 23:57 | PC.NURSE ---
REPORT GIVEN TO FLOOR.
[2021-03-07] VITALS (17 sets, daily range): BP systolic 104–137; BP diastolic 54–99; PULSE 52–99; RESP 12–20; TEMP 36–37.4; O2SAT 95–100; BMI 28.1; BMI 28.2
--- NOTE | 2021-03-07 00:08 | PC.NURSE ---
BLOOD TRANSFUSION ENDED AT THIS TIME. PT DENIES S/S OF REACTION. PT AWAITING FOR TRANSPORT TO FLOOR. PT IN NAD. VS OBTAINED.
[2021-03-07] MEDS: Dextrose 5 % and 0.45 % NaCl 1,000 ML 100 ML IVCONT ×2 (00:45→10:56)
[2021-03-07] MEDS: 0.9 % Sodium Chloride Flush 3 ML SYRINGE IVFLUSH ×3 (00:50→21:13)
[2021-03-07] MEDS: diphenhydrAMINE HCL 25 MG TABLET PO (01:32)
[2021-03-07] MEDS: metroNIDAZOLE/NS 500 MG/100 ML PIGGYBACK 100 MG IV ×3 (05:58→21:12)
[2021-03-07] MEDS: Pantoprazole Sodium 40 MG/10 ML VIAL IVPUSH (06:05)
[2021-03-07 06:51] LABS: Imm Gran Abs Auto 0.01 X10*3/uL (0.00-0.03); Imm Gran Pct Auto 0.2 % (0.0-0.4); Lymphocytes Absolute Auto 1.2 X10*3/uL (1.2-4.9); MANUAL DIFF FLAG SCAN; SCAN SMEAR FLAG 1
[2021-03-07 06:53] LABS: Basophils Percent Auto 0.3 % (0-2); Eosinophils Percent Auto 0.3 % (0-4); Hematocrit 27.3 % (37-47); Hemoglobin 7.1 g/dl (12.0-16.0); Lymphocytes Percent Auto 19.2 % (20-40); Mean Corpuscular Hemoglobin 16.8 pg (27.0-33.0); Monocytes Absolute Auto 1.2 X10*3/uL (0.1-1.2); Monocytes Percent Auto 18.4 % (2-11); Neutrophils Absolute Auto 3.9 X10*3/uL (2.0-8.3); Neutrophils Percent Auto 61.6 % (45-73); Platelet Count 265 X10*3/uL (160-400); Red Blood Count 4.22 X10*6/uL (4.20-5.50); Red Cell Distribution Width 23.2 % (11.0-16.0); White Blood Count 6.4 X10*3/uL (4.8-10.8)
[2021-03-07 06:56] LABS: Mean Corpuscular Volume 64.7 fL (80-98)
[2021-03-07 07:15] LABS: Anion Gap 13 (12-20); Blood Urea Nitrogen 7 mg/dL (9-16); Carbon Dioxide 21 mmol/L (22-29); Chloride 106 mmol/L (96-108); Creatinine Clr Calc Pharmacy 124.5; Estimated Glomerular Filt Rate > 60; Glucose Random 105 mg/dL (60-115); Potassium 3.6 mmol/L (3.3-5.1); Sodium 136 mmol/L (135-145)
--- NOTE | 2021-03-07 07:15 | P.CNGI_ITS ---
History of Present Illness Data of Consult Service Date: 03/07/21 Requesting physician: Geovanny Vasquez Primary Care Provider: Dennise Chambers MD HPI Reason for consult: acute blood loss anemia 35-year-old female with history of gastric bypass in 2011 who I am asked to see for evaluation for acute blood loss anemia. She had 1-2 d hx of left sided abdominal pain with nausea and non bloody emesis. She also noted loose stools which were black in appearance. She had some fever which improved with tylenol. She has not been taking nsaids. not on iron supplement since bypass or mutlivitamin, not had the time She does not drink alcohol. She has never had any GI bleeding in the past. Patient reports her menstrual cycles are regular, denies any excessive bleeding. Denies being on antibiotics within last 3 months or taking [id number] pain medications. Labs with anemia hgb around 7 with low iron sat CT scan with thickened right colon, prox transverse colon, some opacification around gastric pouch noted, ?prominet vasculature, mesenteric nodes noted (personal reviews of imaging) today feeling much better with lessening of pain. . Review of Systems Review of Systems: Constitutional: No Fever, No Chills ENT/Mouth: No sore throat, No Rhinorrhea, No Swallowing Difficulty Cardiovascular: No Chest Pain, + SOB Respiratory: No Cough, No Sputum, No Wheezing, No dyspnea Gastrointestinal: No Nausea, No Vomiting, + Diarrhea, + abdominal Pain, No Hematochezia, + Melena Genitourinary: No Dysuria, No Urinary Frequency, No Hematuria Musculoskeletal: No joint pain, No Myalgias Skin: No Skin Lesions, No rash Neuro: + Weakness, No Numbness, No Dizziness, No Headache Psych: + Anxiety/Panic, No Depression Heme/Lymph: No Bruising, No Lymphadenopathy Endocrine: No Polyuria, No Polydipsia PMFSH Surgical History Surgical History (Updated 03/06/21 @ 14:40 by Tra Concepcion) Gastric bypass status for obesity Social History Social History Household Members: Spouse and Children Housing: Apartment Do you presently have visiting nurse or other home services: No Alcohol intake: never Patient Tobacco Use Status: Never used Tobacco Smoked in Last 30 Days: No Use of substances other than those prescribed or required for medical reasons: No Have you been hit, kicked, punched, or otherwise hurt by someone within the past year? If so, by whom?: No Do you feel safe in your current relationship?: Yes Is there a partner from a previous relationship who is making you feel unsafe now?: No Are you made to feel afraid or neglected: No Advance Directives: No Advance Directives Information Provided: No Do you have thoughts of harming others: None Do you have a plan to hurt others: No Plan Recently lost weight without trying: No Nutrition Risks: No Nutritional Risk Patient : No : No Poor oral hygiene: No service: No Current occupational status: employed Meds Allergies Allergy/AdvReac Type Severity Reaction Status Date / Time No Known Allergies Allergy Unverified 05/18/20 19:07 [No Known Allergies*] Active Medications: Current Medications Generic Name Dose Route Start Last Admin Trade Name Freq PRN Reason Stop Dose Admin Acetaminophen 650 mg 03/06/21 21:57 Acetaminophen 325 Mg Tablet PO Q6H PRN Pain, Mild (Pain Scale 1-3) Dextrose/Sodium Chloride 1,000 mls @ 100 mls/hr 03/06/21 22:00 03/07/21 06:05 D51/2ns IVCONT 0 mls/hr .Q10H SUNDAY Infusion Metronidazole 500 mg in 100 mls @ 100 mls/hr 03/07/21 05:00 03/07/21 05:58 Flagyl IV 100 mls/hr Q8H SUNDAY Administration Ceftriaxone Sodium 1 gm/ 50 mls @ 100 mls/hr 03/07/21 20:00 Sodium Chloride IV Q24H SUNDAY Melatonin 6 mg 03/06/21 21:57 Melatonin 3 Mg Tablet PO BEDTIME PRN Insomnia Ondansetron HCl 4 mg 03/06/21 21:57 Ondansetron Hcl 4 Mg/2 Ml Vial IVPUSH Q8H PRN Nausea and Vomiting Pantoprazole Sodium 40 mg 03/07/21 06:30 03/07/21 06:05 Pantoprazole Sodium 40 Mg/10 Ml Vial IVPUSH 40 mg DAILY@0630 [facility] Administration Pharmacy Consult 1 each 03/06/21 17:20 Consult Rx Perform Med Rec MISCELLANE ONCE PRN Consult order Sodium Chloride 3 ml 03/07/21 00:00 03/07/21 00:50 0.9 % Sodium Chloride Flush 3 Ml Syringe IVFLUSH 3 ml QSHIFT SUNDAY Administration Home Medications Medication Instructions Recorded Confirmed Last Taken Type No Known Home Meds 03/06/21 03/06/21 Unknown History Physical Exam Vital Signs: Vital Signs: Last Vital Signs Temp 98.0 F 03/07/21 03:37 Pulse 94 03/07/21 03:37 Resp 18 03/07/21 03:37 BP 121/69 03/07/21 03:37 Pulse Ox 98 03/07/21 03:37 Body Mass Index 28.2 EXAM: GENERAL: The patient is well developed and nontoxic. VITAL SIGNS:see workflow HEENT: Nonicteric sclerae, PERRLA, EOMI. Oropharynx clear. Moist mucous membranes. Conjunctivae appear well perfused. No thyroid mass. CHEST: Chest wall is nontender. HEART: Regular rate and rhythm without murmurs. LUNGS: Clear to auscultation bilaterally. ABDOMEN: Soft, positive bowel sounds, nontender, no organomegaly.no flank tenderness SKIN: No rash, no excessive bruising, petechiae, or purpura. NEUROLOGIC: Cranial nerves II-XII intact without motor/sensory deficit. Psych--nml affect Results Labs CBC & Chem 7: 03/07/21 05:28 03/07/21 05:28 Labs: Short CBC 03/06/21 Range/Units 16:15 WBC 8.4 (4.8-10.8) X10*3/uL Hgb 6.8 L* (12.0-16.0) g/dl Hct 27.6 L (37-47) % Plt Count 320 (160-400) X10*3/uL BMP 03/06/21 03/07/21 16:15 05:28 Sodium 135 136 Potassium 3.9 3.6 Chloride 102 106 Carbon Dioxide 21 L 21 L BUN 7 L 7 L Creatinine 0.77 0.68 Calcium 8.8 8.0 L D Liver Function 03/06/21 Range/Units 16:15 Total Bilirubin 1.3 H (0.0-1.0) mg/dL Direct Bilirubin 0.5 (0.0-0.5) mg/dL AST 18 (5-31) U/L ALT 6 (0-31) U/L Alkaline Phosphatase 104 (39-117) U/L Albumin 4.1 (3.5-5.0) g/dL Urine 03/06/21 Range/Units 16:15 Urine Color YELLOW Urine Appearance CLEAR Urine pH 6.0 (5.0-8.0) Ur Specific [place] >= 1.030 H (1.005-1.025) Urine Protein 2+ H (NEG-TRACE) MG/DL Urine Glucose (UA) NEG (NEG) MG/DL Assessment and Plan (1) Acute blood loss anemia: Status: Acute 1/ Acute blood loss anemia -possibly acute on chronic given the v low MCV- could be multifactorial from malabsorption from her bypass and GI blood losses, anastomotic ulcer, colonic lesion 2/ Abn thickened colon, maybe infectious, or inflammatory, vs neoplasia PLAN: 1/ Start of with EGD today, if neg then colonoscopy tomorrow 2/ cont with PPI 3/ cont with ABX as doing for the meantime 4/ target hgb around 8-9 g/dl Procedures Date of Service Date of Service: 03/07/21
[2021-03-07 07:56] LABS: SLIDE REVIEW VERIFIED
--- NOTE | 2021-03-07 08:53 | MHC.CM.PN ---
pt lives c her in their home. 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 her can help her should she have any needs, this will include a ride home at dc. pt denies the need for vna at dc. dc plan is home no svcs. cm to cont. to follow.
--- NOTE | 2021-03-07 12:37 | P.CONAN_ITS ---
[facility] Active Problems Active Problems: All Active Problems (Updated 03/06/21 @ 21:00 by OLESYA Dorsey) Acute blood loss anemia (Acute) Enterocolitis (Acute) Surgical History Surgical History (Updated 03/06/21 @ 14:40 by Tra Concepcion) Gastric bypass status for obesity Social History Social History Household Members: Spouse and Children Housing: Apartment Do you presently have visiting nurse or other home services: No Alcohol intake: never Patient Tobacco Use Status: Never used Tobacco Smoked in Last 30 Days: No Use of substances other than those prescribed or required for medical reasons: No Currently Displaying Signs/Symptoms of Drug Intoxication Withdrawal: No Have you been hit, kicked, punched, or otherwise hurt by someone within the past year? If so, by whom?: No Do you feel safe in your current relationship?: Yes Is there a partner from a previous relationship who is making you feel unsafe now?: No Are you made to feel afraid or neglected: No Are you DNR?: No Advance Directives: No Advance Directives Information Provided: No Do you have thoughts of harming others: None Do you have a plan to hurt others: No Plan Recently lost weight without trying: No Nutrition Risks: No Nutritional Risk Patient : No : No Poor oral hygiene: No service: No Current occupational status: employed Meds Allergies Allergy/AdvReac Type Severity Reaction Status Date / Time No Known Allergies Allergy Unverified 05/18/20 19:07 [No Known Allergies*] Active Medications: Current Medications Generic Name Dose Route Start Last Admin Trade Name Freq PRN Reason Stop Dose Admin Acetaminophen 650 mg 03/06/21 21:57 Acetaminophen 325 Mg Tablet PO Q6H PRN Pain, Mild (Pain Scale 1-3) Dextrose/Sodium Chloride 1,000 mls @ 100 mls/hr 03/06/21 22:00 03/07/21 10:56 D51/2ns IVCONT 100 mls/hr .Q10H SUNDAY Administration Metronidazole 500 mg in 100 mls @ 100 mls/hr 03/07/21 05:00 03/07/21 08:09 Flagyl IV Infused Q8H SUNDAY Infusion Ceftriaxone Sodium 1 gm/ 50 mls @ 100 mls/hr 03/07/21 20:00 Sodium Chloride IV Q24H SUNDAY Melatonin 6 mg 03/06/21 21:57 Melatonin 3 Mg Tablet PO BEDTIME PRN Insomnia Ondansetron HCl 4 mg 03/06/21 21:57 Ondansetron Hcl 4 Mg/2 Ml Vial IVPUSH Q8H PRN Nausea and Vomiting Pantoprazole Sodium 40 mg 03/07/21 06:30 03/07/21 06:05 Pantoprazole Sodium 40 Mg/10 Ml Vial IVPUSH 40 mg DAILY@0630 [facility] Administration Pharmacy Consult 1 each 03/06/21 17:20 Consult Rx Perform Med Rec MISCELLANE ONCE PRN Consult order Sodium Chloride 3 ml 03/07/21 00:00 03/07/21 10:56 0.9 % Sodium Chloride Flush 3 Ml Syringe IVFLUSH 3 ml QSHIFT [facility] Administration Home Medications Medication Instructions Recorded Confirmed Last Taken Type No Known Home Meds 03/06/21 03/06/21 Unknown History Exam Exam Date and Time: March 07, 2021 1237 Height,Weight and Vital Signs: Height 5 ft 7 in Weight 81.7 kg Last Vital Signs Temp 97.4 F 03/07/21 12:31 Pulse 96 03/07/21 12:31 Resp 16 03/07/21 12:31 BP 104/65 03/07/21 12:31 Pulse Ox 100 03/07/21 12:31 Pertinent Lab Results Pertinent Lab Results: Laboratory Tests 03/06/21 03/06/21 03/06/21 16:15 16:15 16:15 WBC 8.4 RBC 4.50 Hgb 6.8 L* Hct 27.6 L MCV 61.3 L MCH 15.1 L MCHC 24.6 L RDW 20.1 H Plt Count 320 MPV Not Reportable Immature Gran % (Auto) 0.4 Neut % (Auto) 76.9 H Lymph % (Auto) 13.2 L Sebastian % (Auto) 9.3 Eos % (Auto) 0.0 Baso % (Auto) 0.2 Lymph # (Auto) 1.1 L Sebastian # (Auto) 0.8 Eos # (Auto) 0.0 Baso # (Auto) 0.0 Abs Immat Gran (auto) 0.03 Absolute Neuts (auto) 6.4 Absolute Nucleated RBC 0.000 Nucleated RBC % (auto) 0.0 Smear Tech's Comments VERIFIED ESR Absolute Retic Percent Retic Immature Retic Fraction Retic Hgb Equivalent Sodium 135 Potassium 3.9 Chloride 102 Carbon Dioxide 21 L Anion Gap 16 BUN 7 L Creatinine 0.77 Estim Creat Clear Calc 115.6 Estimated GFR > 60 Random Glucose 106 Lactic Acid Calcium 8.8 Iron 9 L TIBC 523 H % Saturation 2 L Unsat Iron Binding 514 Total Bilirubin 1.3 H Direct Bilirubin 0.5 AST 18 ALT 6 Alkaline Phosphatase 104 C-Reactive Protein 16.99 H Total Protein 6.9 Albumin 4.1 Lipase 13 Urine Color Urine Appearance Urine pH Ur Specific [place] Urine Protein Urine Glucose (UA) Urine Ketones Urine Blood Urine Nitrite Ur Leukocyte Esterase Urine RBC Urine WBC Ur Squamous Epith Cells Urine Bacteria Urine Mucus Urine Test Stool Collect Date Stool Occult Blood Stool 2 Collect Date Stool Occult Blood #2 Stool 3 Collect Date Stool Occult Blood #3 COVID-19 ([place]) Negative COVID-19 EQ works Com See Note Blood Type Antibody Screen Crossmatch 03/06/21 03/06/21 03/06/21 16:15 16:15 16:15 WBC RBC Hgb Hct MCV MCH MCHC RDW Plt Count MPV Immature Gran % (Auto) Neut % (Auto) Lymph % (Auto) Sebastian % (Auto) Eos % (Auto) Baso % (Auto) Lymph # (Auto) Sebastian # (Auto) Eos # (Auto) Baso # (Auto) Abs Immat Gran (auto) Absolute Neuts (auto) Absolute Nucleated RBC Nucleated RBC % (auto) Smear Tech's Comments ESR Absolute Retic 0.054 Percent Retic 1.2 Immature Retic Fraction 24.9 H Retic Hgb Equivalent 14.6 L Sodium Potassium Chloride Carbon Dioxide Anion Gap BUN Creatinine Estim Creat Clear Calc Estimated GFR Random Glucose Lactic Acid Calcium Iron TIBC % Saturation Unsat Iron Binding Total Bilirubin Direct Bilirubin AST ALT Alkaline Phosphatase C-Reactive Protein Total Protein Albumin Lipase Urine Color YELLOW Urine Appearance CLEAR Urine pH 6.0 Ur Specific [place] >= 1.030 H Urine Protein 2+ H Urine Glucose (UA) NEG Urine Ketones 5 Urine Blood 2+ H Urine Nitrite NEG Ur Leukocyte Esterase NEG Urine RBC 1-4 Urine WBC 5-9 H Ur Squamous Epith Cells 4+ Urine Bacteria 1+ Urine Mucus 1+ Urine Test NEGATIVE Stool Collect Date Stool Occult Blood Stool 2 Collect Date Stool Occult Blood #2 Stool 3 Collect Date Stool Occult Blood #3 COVID-19 ([place]) COVID-19 Clin Com Blood Type Antibody Screen Crossmatch 03/06/21 03/06/21 03/06/21 17:25 17:50 18:03 WBC RBC Hgb Hct MCV MCH MCHC RDW Plt Count MPV Immature Gran % (Auto) Neut % (Auto) Lymph % (Auto) Sebastian % (Auto) Eos % (Auto) Baso % (Auto) Lymph # (Auto) Sebastian # (Auto) Eos # (Auto) Baso # (Auto) Abs Immat Gran (auto) Absolute Neuts (auto) Absolute Nucleated RBC Nucleated RBC % (auto) Smear Tech's Comments ESR 12 Absolute Retic Percent Retic Immature Retic Fraction Retic Hgb Equivalent Sodium Potassium Chloride Carbon Dioxide Anion Gap BUN Creatinine Estim Creat Clear Calc Estimated GFR Random Glucose Lactic Acid 1.2 Calcium Iron TIBC % Saturation Unsat Iron Binding Total Bilirubin Direct Bilirubin AST ALT Alkaline Phosphatase C-Reactive Protein Total Protein Albumin Lipase Urine Color Urine Appearance Urine pH Ur Specific [place] Urine Protein Urine Glucose (UA) Urine Ketones Urine Blood Urine Nitrite Ur Leukocyte Esterase Urine RBC Urine WBC Ur Squamous Epith Cells Urine Bacteria Urine Mucus Urine Test Stool Collect Date Stool Occult Blood Stool 2 Collect Date Stool Occult Blood #2 Stool 3 Collect Date Stool Occult Blood #3 COVID-19 ([place]) COVID-19 Clin Com Blood Type A Positive Antibody Screen NEGATIVE Crossmatch See Detail 03/06/21 03/06/21 03/07/21 18:03 18:03 05:28 WBC 6.4 RBC 4.22 Hgb 7.1 L Hct 27.3 L MCV 64.7 L MCH 16.8 L MCHC 26.0 L RDW 23.2 H Plt Count 265 MPV Immature Gran % (Auto) 0.2 Neut % (Auto) 61.6 Lymph % (Auto) 19.2 L Sebastian % (Auto) 18.4 H Eos % (Auto) 0.3 Baso % (Auto) 0.3 Lymph # (Auto) 1.2 Sebastian # (Auto) 1.2 Eos # (Auto) 0.0 Baso # (Auto) 0.0 Abs Immat Gran (auto) 0.01 Absolute Neuts (auto) 3.9 Absolute Nucleated RBC 0.000 Nucleated RBC % (auto) 0.0 Smear Tech's Comments VERIFIED ESR Absolute Retic Percent Retic Immature Retic Fraction Retic Hgb Equivalent Sodium Potassium Chloride Carbon Dioxide Anion Gap BUN Creatinine Estim Creat Clear Calc Estimated GFR Random Glucose Lactic Acid Calcium Iron TIBC % Saturation Unsat Iron Binding Total Bilirubin Direct Bilirubin AST ALT Alkaline Phosphatase C-Reactive Protein Total Protein Albumin Lipase Urine Color Urine Appearance Urine pH Ur Specific [place] Urine Protein Urine Glucose (UA) Urine Ketones Urine Blood Urine Nitrite Ur Leukocyte Esterase Urine RBC Urine WBC Ur Squamous Epith Cells Urine Bacteria Urine Mucus Urine Test Stool Collect Date Cancelled Stool Occult Blood Cancelled NEGATIVE Stool 2 Collect Date Cancelled Stool Occult Blood #2 Cancelled Stool 3 Collect Date Cancelled Stool Occult Blood #3 Cancelled COVID-19 ([place]) COVID-19 Clin Com Blood Type Antibody Screen Crossmatch 03/07/21 05:28 WBC RBC Hgb Hct MCV MCH MCHC RDW Plt Count MPV Immature Gran % (Auto) Neut % (Auto) Lymph % (Auto) [place] % (Auto) Eos % (Auto) Baso % (Auto) Lymph # (Auto) Sebastian # (Auto) Eos # (Auto) Baso # (Auto) Abs Immat Gran (auto) Absolute Neuts (auto) Absolute Nucleated RBC Nucleated RBC % (auto) Smear Tech's Comments ESR Absolute Retic Percent Retic Immature Retic Fraction Retic Hgb Equivalent Sodium 136 Potassium 3.6 Chloride 106 Carbon Dioxide 21 L Anion Gap 13 BUN 7 L Creatinine 0.68 Estim Creat Clear Calc 124.5 Estimated GFR > 60 Random Glucose 105 Lactic Acid Calcium 8.0 L D Iron TIBC % Saturation Unsat Iron Binding Total Bilirubin Direct Bilirubin AST ALT Alkaline Phosphatase C-Reactive Protein Total Protein Albumin Lipase Urine Color Urine Appearance Urine pH Ur Specific [place] Urine Protein Urine Glucose (UA) Urine Ketones Urine Blood Urine Nitrite Ur Leukocyte Esterase Urine RBC Urine WBC Ur Squamous Epith Cells Urine Bacteria Urine Mucus Urine Test Stool Collect Date Stool Occult Blood Stool 2 Collect Date Stool Occult Blood #2 Stool 3 Collect Date Stool Occult Blood #3 COVID-19 ([place]) COVID-19 Clin Com Blood Type Antibody Screen Crossmatch Airway Mallampati Class: II TM Dist: >3cm Neck ROM: Full Heart: rrr Lungs: cta Assessment and Plan Assessment Anesthesia Assessment: Anesthesia Plan Discussed and Chart Reviewed Final Anesthetic Review NPO: Yes ASA Class: II Final Preanesthetic Review: No Changes in Pt Med Stat and Consent Obtained/Reviewed Patient Risk: Intermediate Procedure Risk: Intermediate Anesthetic Plan Anesthetic Plan: MAC: Disposition: Standard PACU
--- NOTE | 2021-03-07 12:40 | MHC.SHP ---
Pre-Procedural Eval Section A Date of Service: 03/07/21 The patient is an INPATIENT: Yes The History & Physical has been completed within 30 days and I have reviewed it.: Yes Section B Chief Complaint: anemia Allergies: Allergies Allergy/AdvReac Type Severity Reaction Status Date / Time No Known Allergies Allergy Unverified 05/18/20 19:07 [No Known Allergies*] Plan Diagnosis/Plan: Unchanged I have reviewed the history and physical and performed a pertinent physical examination on my patient. No changes have occurred unless specified.
--- NOTE | 2021-03-07 13:05 | PM.IMPN ---
Subjective Subjective Date of Service: 03/07/21 Interval History: Follow up anemia still low HH EGD today no abd pain Physical Exam Vital Signs: Vital Signs: Last Vital Signs Temp 97.4 F 03/07/21 12:31 Pulse 96 03/07/21 12:31 Resp 16 03/07/21 12:31 BP 104/65 03/07/21 12:31 Pulse Ox 100 03/07/21 12:31 Body Mass Index 28.2 Appearing in no acute distress lung sounds are clear to auscultation heart regular rate rhythm, clear S1, S2 positive bowel sounds, abdomen is soft, nontender neuro patient is alert x3, no focal deficits Objective Data Current Medications Generic Name Dose Route Start Last Admin Trade Name Freq PRN Reason Stop Dose Admin Acetaminophen 650 mg 03/06/21 21:57 Acetaminophen 325 Mg Tablet PO Q6H PRN Pain, Mild (Pain Scale 1-3) Dextrose/Sodium Chloride 1,000 mls @ 100 mls/hr 03/06/21 22:00 03/07/21 10:56 D51/2ns IVCONT 100 mls/hr .Q10H SUNDAY Administration Metronidazole 500 mg in 100 mls @ 100 mls/hr 03/07/21 05:00 03/07/21 08:09 Flagyl IV Infused Q8H SUNDAY Infusion Ceftriaxone Sodium 1 gm/ 50 mls @ 100 mls/hr 03/07/21 20:00 Sodium Chloride IV Q24H SUNDAY Lactated Ringer's 1,000 mls @ 50 mls/hr 03/07/21 12:45 Lr IVCONT .Q20H SUNDAY Melatonin 6 mg 03/06/21 21:57 Melatonin 3 Mg Tablet PO BEDTIME PRN Insomnia Ondansetron HCl 4 mg 03/06/21 21:57 Ondansetron Hcl 4 Mg/2 Ml Vial IVPUSH Q8H PRN Nausea and Vomiting Pantoprazole Sodium 40 mg 03/07/21 06:30 03/07/21 06:05 Pantoprazole Sodium 40 Mg/10 Ml Vial IVPUSH 40 mg DAILY@0630 [facility] Administration Pharmacy Consult 1 each 03/06/21 17:20 Consult Rx Perform Med Rec MISCELLANE ONCE PRN Consult order Sodium Chloride 3 ml 03/07/21 00:00 03/07/21 10:56 0.9 % Sodium Chloride Flush 3 Ml Syringe IVFLUSH 3 ml QSHIFT [facility] Administration Labs CBC & Chem 7: 03/07/21 05:28 03/07/21 05:28 Labs: Laboratory Results - last 24 hr 03/06/21 03/06/21 03/06/21 16:15 16:15 16:15 MCV 61.3 L MCH 15.1 L MCHC 24.6 L RDW 20.1 H Plt Count 320 MPV Not Reportable Immature Gran % (Auto) 0.4 Neut % (Auto) 76.9 H Lymph % (Auto) 13.[address] % (Auto) 9.3 Eos % (Auto) 0.0 Baso % (Auto) 0.2 Lymph # (Auto) 1.[address] [place] # (Auto) 0.8 Eos # (Auto) 0.0 Baso # (Auto) 0.0 Abs Immat Gran (auto) 0.03 Absolute Neuts (auto) 6.4 Absolute Nucleated RBC 0.000 Nucleated RBC % (auto) 0.0 Smear Tech's Comments VERIFIED ESR Absolute Retic Percent Retic Immature Retic Fraction Retic Hgb Equivalent Anion Gap 16 Estim Creat Clear Calc 115.6 Estimated GFR > 60 Random Glucose 106 Lactic Acid Calcium 8.8 Iron 9 L TIBC 523 H % Saturation 2 L Unsat Iron Binding 514 Total Bilirubin 1.3 H Direct Bilirubin 0.5 AST 18 ALT 6 Alkaline Phosphatase 104 C-Reactive Protein 16.99 H Total Protein 6.9 Albumin 4.1 Lipase 13 Urine Color Urine Appearance Urine pH Ur Specific [place] Urine Protein Urine Glucose (UA) Urine Ketones Urine Blood Urine Nitrite Ur Leukocyte Esterase Urine RBC Urine WBC Ur Squamous Epith Cells Urine Bacteria Urine Mucus Urine Test Stool Collect Date Stool Occult Blood Stool 2 Collect Date Stool Occult Blood #2 Stool 3 Collect Date Stool Occult Blood #3 COVID-19 ([place]) Negative COVID-19 Clin Com See Note Blood Type Antibody Screen Crossmatch 03/06/21 03/06/21 03/06/21 16:15 16:15 16:15 MCV MCH MCHC RDW Plt Count MPV Immature Gran % (Auto) Neut % (Auto) Lymph % (Auto) [facility] % (Auto) Eos % (Auto) Baso % (Auto) Lymph # (Auto) [facility] # (Auto) Eos # (Auto) Baso # (Auto) Abs Immat Gran (auto) Absolute Neuts (auto) Absolute Nucleated RBC Nucleated RBC % (auto) Smear Tech's Comments ESR Absolute Retic 0.054 Percent Retic 1.2 Immature Retic Fraction 24.9 H Retic Hgb Equivalent 14.6 L Anion Gap Estim Creat Clear Calc Estimated GFR Random Glucose Lactic Acid Calcium Iron TIBC % Saturation Unsat Iron Binding Total Bilirubin Direct Bilirubin AST ALT Alkaline Phosphatase C-Reactive Protein Total Protein Albumin Lipase Urine Color YELLOW Urine Appearance CLEAR Urine pH 6.0 Ur Specific [place] >= 1.030 H Urine Protein 2+ H Urine Glucose (UA) NEG Urine Ketones 5 Urine Blood 2+ H Urine Nitrite NEG Ur Leukocyte Esterase NEG Urine RBC 1-4 Urine WBC 5-9 H Ur Squamous Epith Cells 4+ Urine Bacteria 1+ Urine Mucus 1+ Urine Test NEGATIVE Stool Collect Date Stool Occult Blood Stool 2 Collect Date Stool Occult Blood #2 Stool 3 Collect Date Stool Occult Blood #3 COVID-19 ([place]) COVID-19 [facility] Com Blood Type Antibody Screen Crossmatch 03/06/21 03/06/21 03/06/21 17:25 17:50 18:03 MCV MCH MCHC RDW Plt Count MPV Immature Gran % (Auto) Neut % (Auto) Lymph % (Auto) [facility] % (Auto) Eos % (Auto) Baso % (Auto) Lymph # (Auto) [facility] [place] # (Auto) Eos # (Auto) Baso # (Auto) Abs Immat Gran (auto) Absolute Neuts (auto) Absolute Nucleated RBC Nucleated RBC % (auto) Smear Tech's Comments ESR 12 Absolute Retic Percent Retic Immature Retic Fraction Retic Hgb Equivalent Anion Gap Estim Creat Clear Calc Estimated GFR Random Glucose Lactic Acid 1.2 Calcium Iron TIBC % Saturation Unsat Iron Binding Total Bilirubin Direct Bilirubin AST ALT Alkaline Phosphatase C-Reactive Protein Total Protein Albumin Lipase Urine Color Urine Appearance Urine pH Ur Specific [place] Urine Protein Urine Glucose (UA) Urine Ketones Urine Blood Urine Nitrite Ur Leukocyte Esterase Urine RBC Urine WBC Ur Squamous Epith Cells Urine Bacteria Urine Mucus Urine Test Stool Collect Date Stool Occult Blood Stool 2 Collect Date Stool Occult Blood #2 Stool 3 Collect Date Stool Occult Blood #3 COVID-19 ([place]) COVID-19 [facility] Com Blood Type A Positive Antibody Screen NEGATIVE Crossmatch See Detail 03/06/21 03/06/21 03/07/21 18:03 18:03 05:28 MCV 64.7 L MCH 16.8 L MCHC 26.0 L RDW 23.2 H Plt Count 265 MPV Immature Gran % (Auto) 0.2 Neut % (Auto) 61.6 Lymph % (Auto) 19.[address] [place] % (Auto) 18.4 H Eos % (Auto) 0.3 Baso % (Auto) 0.3 Lymph # (Auto) 1.2 [facility] [place] # (Auto) 1.2 Eos # (Auto) 0.0 Baso # (Auto) 0.0 Abs Immat Gran (auto) 0.01 Absolute Neuts (auto) 3.9 Absolute Nucleated RBC 0.000 Nucleated RBC % (auto) 0.0 Smear Tech's Comments VERIFIED ESR Absolute Retic Percent Retic Immature Retic Fraction Retic Hgb Equivalent Anion Gap Estim Creat Clear Calc Estimated GFR Random Glucose Lactic Acid Calcium Iron TIBC % Saturation Unsat Iron Binding Total Bilirubin Direct Bilirubin AST ALT Alkaline Phosphatase C-Reactive Protein Total Protein Albumin Lipase Urine Color Urine Appearance Urine pH Ur Specific [place] Urine Protein Urine Glucose (UA) Urine Ketones Urine Blood Urine Nitrite Ur Leukocyte Esterase Urine RBC Urine WBC Ur Squamous Epith Cells Urine Bacteria Urine Mucus Urine Test Stool Collect Date Cancelled Stool Occult Blood Cancelled NEGATIVE Stool 2 Collect Date Cancelled Stool Occult Blood #2 Cancelled Stool 3 Collect Date Cancelled Stool Occult Blood #3 Cancelled COVID-19 ([place]) COVID-19 Clin Com Blood Type Antibody Screen Crossmatch 03/07/21 05:28 MCV MCH MCHC RDW Plt Count MPV Immature Gran % (Auto) Neut % (Auto) Lymph % (Auto) [facility] [place] % (Auto) Eos % (Auto) Baso % (Auto) Lymph # (Auto) [facility] # (Auto) Eos # (Auto) Baso # (Auto) Abs Immat Gran (auto) Absolute Neuts (auto) Absolute Nucleated RBC Nucleated RBC % (auto) Smear Tech's Comments ESR Absolute Retic Percent Retic Immature Retic Fraction Retic Hgb Equivalent Anion Gap 13 Estim Creat Clear Calc 124.5 Estimated GFR > 60 Random Glucose 105 Lactic Acid Calcium 8.0 L D Iron TIBC % Saturation Unsat Iron Binding Total Bilirubin Direct Bilirubin AST ALT Alkaline Phosphatase C-Reactive Protein Total Protein Albumin Lipase Urine Color Urine Appearance Urine pH Ur Specific [place] Urine Protein Urine Glucose (UA) Urine Ketones Urine Blood Urine Nitrite Ur Leukocyte Esterase Urine RBC Urine WBC Ur Squamous Epith Cells Urine Bacteria Urine Mucus Urine Test Stool Collect Date Stool Occult Blood Stool 2 Collect Date Stool Occult Blood #2 Stool 3 Collect Date Stool Occult Blood #3 COVID-19 ([place]) COVID-19 Clin Com Blood Type Antibody Screen Crossmatch Microbiology Microbiology Results: Microbiology 03/06/21 16:54 Urine clean catch - Clean Catch Midstream Urine Culture - Preliminary No growth to date. Progress Note: A&P (1) Acute blood loss anemia: Status: Acute Assessment and Plan: 35-year-old female with no significant past medical history presented to the hospital with a chief complaint of nausea /abdominal pain noted to have enterocolitis and anemia. Admitted for further management. microcytic anemia. Stool guaiac was negative. No black stools, normal menstrual cycles with no excessive bleeding. Patient being transfused blood in the ER. low iron studies, ? related to absorption from gastric bypass vs acute bleeding vs iron def had anemia in 2018 Gi following, EGD today IV ppi Low iron studies, Enterocolitis Continue ceftriaxone and Flagyl. NPO. IV fluids. DVT prophylaxis: SCD boots Code status: Full code Quality Stroke Does the patient have a stroke diagnosis?: No VTE Prior VTE?: No VTE Risk Level:: Medical - moderate - high VTE Device Contraindication: N/A - Device Ordered VTE Drug Contraindication: Treatment Not Tolerated
--- NOTE | 2021-03-07 13:11 | PM.OP ---
Brief Operative Note Date of Service: 03/07/21 Pre-op diagnosis: melena, anemia Post-op diagnosis: same Procedure: see op note Surgeon: Nikole Gonzalez MD Anesthesia: MAC Was an Job Placement Counselor used for this Procedure?: No Estimated blood loss (mL): 0 Condition: stable Disposition: PACU
--- NOTE | 2021-03-07 13:12 | W.PM.OPN ---
Operative Note Operative Note Date of Service: 03/07/21 Narrative: Procedure Description: EGD FLEXIBLE TRANSORAL UPPER GASTROINTESTINAL ENDOSCOPY UPPER ENDOSCOPY Consent: Indications for the procedure and potential complications of bleeding, perforation, reaction to medications and missed diagnosis were discussed with the patient and informed consent was obtained. Instrument: Olympus GIF H 190 J mid size upper endoscope Monitoring: Vital signs and clinical assessment, continuous EKG monitoring, Pulse oximetry, Carbon Dioxide monitoring and blood pressure monitoring were done throughout the procedure. Procedure: The patient was placed in the left lateral decubitis position and pre-procedure medications were administered and a bite block was placed. The endoscope was inserted into the mouth and advanced under direct vision to the third part of duodenum. A careful inspection was made as the upper endoscope was withdrawn including a retroflexed examination of the proximal stomach; Findings and interventions are described below. Findings: Larynx:normal Esophagus: GE junction at 33 cm, diaphragm hiatus at 35 cm, small sliding hiatal hernia with mild esophagitis noted Stomach pouch--normal Jejunum: Normal Intervention: None Impression/Findings: mild esophagitis hiatal hernia PLAN: can cont with PPi PO e.g pantoprazole 20 mg daily reflux precautions colonoscopy tomorrow
[2021-03-07 21:03] LABS: Hematocrit 28.3 % (37-47); Hemoglobin 7.8 g/dl (12.0-16.0)
[2021-03-07] MEDS: PEG 3350/Na Sulf,Bicarb,Cl/KCL 4,000 ML SOLN.RECON 4000 ML PO (21:12)
[2021-03-07] MEDS: cefTRIAXone sodium 1 GM in 0.9 % Sodium Chloride 50 ML IV (21:12)
[2021-03-07] MEDS: Melatonin 3 MG TABLET 6 MG PO (23:31)
[2021-03-08] VITALS (7 sets, daily range): BP systolic 99–124; BP diastolic 57–70; PULSE 78–97; RESP 16–20; TEMP 36.5–37.2; O2SAT 98–100; BMI 27.9
[2021-03-08] MEDS: Dextrose 5 % and 0.45 % NaCl 1,000 ML 100 ML IVCONT (05:15)
[2021-03-08] MEDS: metroNIDAZOLE/NS 500 MG/100 ML PIGGYBACK 100 MG IV ×2 (05:17→14:41)
[2021-03-08] MEDS: Omeprazole 20 MG CAPSULE.DR PO (05:21)
[2021-03-08 07:13] LABS: Hematocrit 29.4 % (37-47); Mean Corpuscular HGB Conc 27.2 g/dl (31.0-35.0); Mean Corpuscular Hemoglobin 18.4 pg (27.0-33.0); Mean Corpuscular Volume 67.6 fL (80-98); Platelet Count 278 X10*3/uL (160-400); Red Blood Count 4.35 X10*6/uL (4.20-5.50); White Blood Count 4.4 X10*3/uL (4.8-10.8)
[2021-03-08 07:34] LABS: PLT ABN DIST 1
[2021-03-08 07:49] LABS: Anion Gap 13 (12-20); Calcium 8.3 mg/dL (8.4-10.2); Carbon Dioxide 23 mmol/L (22-29); Chloride 108 mmol/L (96-108); Creatinine Clr Calc Pharmacy 131.8; Estimated Glomerular Filt Rate > 60; Glucose Random 104 mg/dL (60-115); Potassium 3.6 mmol/L (3.3-5.1); Sodium 140 mmol/L (135-145)
[2021-03-08 08:03] LABS: Blood Urea Nitrogen 4 mg/dL (9-16)
[2021-03-08] MEDS: Sodium Phosphate,Mono-Dibasic 133 ML ENEMA PR ×2 (09:48→12:11)
[2021-03-08 10:41] LABS: Alanine Aminotransferase < 6 U/L (0-31); Albumin Level 3.3 g/dL (3.5-5.0); Alkaline Phosphatase 72 U/L (39-117); Aspartate Amino Transferase 16 U/L (5-31); Bilirubin Direct 0.3 mg/dL (0.0-0.5); Bilirubin Total 0.7 mg/dL (0.0-1.0); Lactate Dehydrogenase 173 U/L (122-220); Total Protein 5.6 g/dL (6.5-8.0)
--- NOTE | 2021-03-08 12:42 | HO.PM.IMPN ---
Subjective Subjective Date of Service: 03/08/21 Interval History: seen and examined this morning denies abdominal pain, feeling bloated, having difficulty finishing prep no bleeding noted Review of Systems Review of Systems: Yes all other systems are reviewed and are negative Constitutional Constitutional: Denies chills and Denies fever(s) Cardiovascular Cardiovascular: Denies chest pain Respiratory Respiratory: Denies cough Gastrointestinal Gastrointestinal: Denies abdominal pain Physical Exam Vital Signs: Vital Signs: Last Vital Signs Temp 97.9 F 03/08/21 11:40 Pulse 82 03/08/21 11:40 Resp 20 03/08/21 11:40 BP 107/66 03/08/21 11:40 Pulse Ox 100 03/08/21 11:40 Body Mass Index 27.9 Const: General: comfortable, no acute distress, alert and awake Nutritional Appearance: well nourished Orientation/consciousness: patient oriented x3 HENMT: Head: Yes normocephalic and Yes atraumatic Eyes: Sclerae: sclerae normal Resp: Effort & Inspection: normal respiratory effort and no respiratory distress Cardio: Rate: regular rate Rhythm: regular rhythm GI: Palpation (GI): Soft to palpation and nontender Neuro: General: patient oriented x3 Cranial nerves: Yes CN's II-XII intact bilaterally and Yes Bilaterally intact EOM present Objective Data Current Medications Generic Name Dose Route Start Last Admin Trade Name Leonardoq PRN Reason Stop Dose Admin Acetaminophen 650 mg 03/06/21 21:57 Acetaminophen 325 Mg Tablet PO Q6H PRN Pain, Mild (Pain Scale 1-3) Dextrose/Sodium Chloride 1,000 mls @ 100 mls/hr 03/06/21 22:00 03/08/21 05:15 D51/2ns IVCONT 100 mls/hr .Q10H SUNDAY Administration Metronidazole 500 mg in 100 mls @ 100 mls/hr 03/07/21 05:00 03/08/21 06:25 Flagyl IV Infused Q8H SUNDAY Infusion Ceftriaxone Sodium 1 gm/ 50 mls @ 100 mls/hr 03/07/21 20:00 03/07/21 21:49 Sodium Chloride IV Infused Q24H SUNDAY Infusion Melatonin 6 mg 03/06/21 21:57 03/07/21 23:31 Melatonin 3 Mg Tablet PO 6 mg BEDTIME PRN Administration Insomnia Omeprazole 20 mg 03/08/21 06:30 03/08/21 05:21 Omeprazole 20 Mg Capsule. PO 20 mg DAILY@0630 [facility] Administration Ondansetron HCl 4 mg 03/06/21 21:57 Ondansetron Hcl 4 Mg/2 Ml Vial IVPUSH Q8H PRN Nausea and Vomiting Pharmacy Consult 1 each 03/06/21 17:20 Consult Rx Perform Med Rec MISCELLANE ONCE PRN Consult order Sodium Chloride 3 ml 03/07/21 00:00 03/08/21 07:21 0.9 % Sodium Chloride Flush 3 Ml Syringe IVFLUSH Not Given QSHIFT [facility] Labs CBC & Chem 7: 03/08/21 05:53 03/08/21 05:53 Labs: Laboratory Results - last 24 hr 03/06/21 03/07/21 03/08/21 17:50 20:56 05:53 WBC 4.4 L RBC 4.35 Hgb 7.8 L 8.0 L Hct 28.3 L 29.4 L MCV 67.6 L MCH 18.4 L MCHC 27.2 L RDW 26.0 H Plt Count 278 MPV Not Reportable Absolute Nucleated RBC 0.000 Nucleated RBC % (auto) 0.0 Sodium Potassium Chloride Carbon Dioxide Anion Gap BUN Creatinine Estim Creat Clear Calc Estimated GFR Random Glucose Calcium Total Bilirubin Direct Bilirubin AST ALT Alkaline Phosphatase Lactate Dehydrogenase Total Protein Albumin Blood Type A Positive Antibody Screen NEGATIVE Crossmatch See Detail 03/08/21 05:53 WBC RBC Hgb Hct MCV MCH MCHC RDW Plt Count MPV Absolute Nucleated RBC Nucleated RBC % (auto) Sodium 140 Potassium 3.6 Chloride 108 Carbon Dioxide 23 Anion Gap 13 BUN 4 L Creatinine 0.64 Estim Creat Clear Calc 131.8 Estimated GFR > 60 Random Glucose 104 Calcium 8.3 L Total Bilirubin 0.7 Direct Bilirubin 0.3 AST 16 ALT < 6 Alkaline Phosphatase 72 D Lactate Dehydrogenase 173 Total Protein 5.6 L Albumin 3.3 L Blood Type Antibody Screen Crossmatch Microbiology Microbiology Results: Microbiology 03/06/21 16:54 Urine Culture - Final Urine clean catch - Clean Catch Midstream 03/06/21 18:04 Blood Culture - Preliminary Blood - Venous No growth after 24 hours. 03/06/21 18:03 Blood Culture - Preliminary Blood - Venous No growth after 24 hours. Quality Stroke Does the patient have a stroke diagnosis?: No VTE Prior VTE?: No VTE Risk Level:: Medical - moderate - high VTE Device Contraindication: N/A - Device Ordered VTE Drug Contraindication: Treatment Not Tolerated Assessment and Plan (1) Acute blood loss anemia: Status: Acute Assessment and Plan: 35-year-old female with no significant past medical history presented to the hospital with a chief complaint of nausea /abdominal pain noted to have enterocolitis and anemia. Admitted for further management. microcytic anemia. Stool guaiac was negative. No black stools, normal menstrual cycles with no excessive bleeding. s/p 2U blood no evidence of hemolysis. low iron studies, ? related to absorption from gastric bypass vs acute bleeding vs iron def anemia dates back to 2018 GI following, s/p EGD 03/07 mild esophagitis po ppi Enterocolitis Continue ceftriaxone and Flagyl. seen by GI -plan for colonoscopy today DVT prophylaxis: SCD boots Code status: Full code Attending. Dr. Pacheco
--- NOTE | 2021-03-08 13:12 | HO.ANESPROP2 ---
[facility] Active Problems Active Problems: All Active Problems (Updated 03/06/21 @ 21:00 by OLESYA Herrera) Acute blood loss anemia (Acute) Enterocolitis (Acute) Surgical History Surgical History Gastric bypass status for obesity Social History Social History Household Members: Spouse and Children Housing: Apartment Do you presently have visiting nurse or other home services: No Alcohol intake: never Patient Tobacco Use Status: Never used Tobacco Smoked in Last 30 Days: No Use of substances other than those prescribed or required for medical reasons: No Currently Displaying Signs/Symptoms of Drug Intoxication Withdrawal: No Have you been hit, kicked, punched, or otherwise hurt by someone within the past year? If so, by whom?: No Do you feel safe in your current relationship?: Yes Is there a partner from a previous relationship who is making you feel unsafe now?: No Are you made to feel afraid or neglected: No Are you DNR?: No Advance Directives: No Advance Directives Information Provided: No Do you have thoughts of harming others: None Do you have a plan to hurt others: No Plan Recently lost weight without trying: No Nutrition Risks: No Nutritional Risk Patient : No : No Poor oral hygiene: No service: No Current occupational status: employed Meds Allergies Allergy/AdvReac Type Severity Reaction Status Date / Time No Known Allergies Allergy Verified 03/08/21 13:00 [No Known Allergies*] Active Medications: Current Medications Generic Name Dose Route Start Last Admin Trade Name Freq PRN Reason Stop Dose Admin Acetaminophen 650 mg 03/06/21 21:57 Acetaminophen 325 Mg Tablet PO Q6H PRN Pain, Mild (Pain Scale 1-3) Dextrose/Sodium Chloride 1,000 mls @ 100 mls/hr 03/06/21 22:00 03/08/21 05:15 D51/2ns IVCONT 100 mls/hr .Q10H SUNDAY Administration Metronidazole 500 mg in 100 mls @ 100 mls/hr 03/07/21 05:00 03/08/21 06:25 Flagyl IV Infused Q8H SUNDAY Infusion Ceftriaxone Sodium 1 gm/ 50 mls @ 100 mls/hr 03/07/21 20:00 03/07/21 21:49 Sodium Chloride IV Infused Q24H SUNDAY Infusion Melatonin 6 mg 03/06/21 21:57 03/07/21 23:31 Melatonin 3 Mg Tablet PO 6 mg BEDTIME PRN Administration Insomnia Omeprazole 20 mg 03/08/21 06:30 03/08/21 05:21 Omeprazole 20 Mg Capsule. PO 20 mg DAILY@0630 SUNDAY Administration Ondansetron HCl 4 mg 03/06/21 21:57 Ondansetron Hcl 4 Mg/2 Ml Vial IVPUSH Q8H PRN Nausea and Vomiting Pharmacy Consult 1 each 03/06/21 17:20 Consult Rx Perform Med Rec MISCELLANE ONCE PRN Consult order Sodium Chloride 3 ml 03/07/21 00:00 03/08/21 07:21 0.9 % Sodium Chloride Flush 3 Ml Syringe IVFLUSH Not Given QSHIFT REPLACED BY [facility] Home Medications Medication Instructions Recorded Confirmed Last Taken Type No Known Home Meds 03/06/21 03/06/21 Unknown History Exam Exam Date and Time: March 08, 2021 1312 Height,Weight and Vital Signs: Height 5 ft 7 in Weight 178 lb 9.191 oz Last Vital Signs Temp 97.9 F 03/08/21 11:40 Pulse 82 03/08/21 11:40 Resp 20 03/08/21 11:40 BP 107/66 03/08/21 11:40 Pulse Ox 100 03/08/21 11:40 Pertinent Lab Results Pertinent Lab Results: Laboratory Tests 03/06/21 03/06/21 03/06/21 16:15 16:15 16:15 WBC 8.4 RBC 4.50 Hgb 6.8 L* Hct 27.6 L MCV 61.3 L MCH 15.1 L MCHC 24.6 L RDW 20.1 H Plt Count 320 MPV Not Reportable Immature Gran % (Auto) 0.4 Neut % (Auto) 76.9 H Lymph % (Auto) 13.2 L [place] % (Auto) 9.3 Eos % (Auto) 0.0 Baso % (Auto) 0.2 Lymph # (Auto) 1.1 L [place] # (Auto) 0.8 Eos # (Auto) 0.0 Baso # (Auto) 0.0 Abs Immat Gran (auto) 0.03 Absolute Neuts (auto) 6.4 Absolute Nucleated RBC 0.000 Nucleated RBC % (auto) 0.0 Smear Tech's Comments VERIFIED ESR Absolute Retic Percent Retic Immature Retic Fraction Retic Hgb Equivalent Sodium 135 Potassium 3.9 Chloride 102 Carbon Dioxide 21 L Anion Gap 16 BUN 7 L Creatinine 0.77 Estim Creat Clear Calc 115.6 Estimated GFR > 60 Random Glucose 106 Lactic Acid Calcium 8.8 Iron 9 L TIBC 523 H % Saturation 2 L Unsat Iron Binding 514 Total Bilirubin 1.3 H Direct Bilirubin 0.5 AST 18 ALT 6 Alkaline Phosphatase 104 Lactate Dehydrogenase C-Reactive Protein 16.99 H Total Protein 6.9 Albumin 4.1 Lipase 13 Urine Color Urine Appearance Urine pH Ur Specific Campbell Urine Protein Urine Glucose (UA) Urine Ketones Urine Blood Urine Nitrite Ur Leukocyte Esterase Urine RBC Urine WBC Ur Squamous Epith Cells Urine Bacteria Urine Mucus Urine Test Stool Collect Date Stool Occult Blood Stool 2 Collect Date Stool Occult Blood #2 Stool 3 Collect Date Stool Occult Blood #3 COVID-19 ([place]) Negative COVID-19 Clin Com See Note Blood Type Antibody Screen Crossmatch 03/06/21 03/06/21 03/06/21 16:15 16:15 16:15 WBC RBC Hgb Hct MCV MCH MCHC RDW Plt Count MPV Immature Gran % (Auto) Neut % (Auto) Lymph % (Auto) [place] % (Auto) Eos % (Auto) Baso % (Auto) Lymph # (Auto) [place] # (Auto) Eos # (Auto) Baso # (Auto) Abs Immat Gran (auto) Absolute Neuts (auto) Absolute Nucleated RBC Nucleated RBC % (auto) Smear Tech's Comments ESR Absolute Retic 0.054 Percent Retic 1.2 Immature Retic Fraction 24.9 H Retic Hgb Equivalent 14.6 L Sodium Potassium Chloride Carbon Dioxide Anion Gap BUN Creatinine Estim Creat Clear Calc Estimated GFR Random Glucose Lactic Acid Calcium Iron TIBC % Saturation Unsat Iron Binding Total Bilirubin Direct Bilirubin AST ALT Alkaline Phosphatase Lactate Dehydrogenase C-Reactive Protein Total Protein Albumin Lipase Urine Color YELLOW Urine Appearance CLEAR Urine pH 6.0 Ur Specific Campbell >= 1.030 H Urine Protein 2+ H Urine Glucose (UA) NEG Urine Ketones 5 Urine Blood 2+ H Urine Nitrite NEG Ur Leukocyte Esterase NEG Urine RBC 1-4 Urine WBC 5-9 H Ur Squamous Epith Cells 4+ Urine Bacteria 1+ Urine Mucus 1+ Urine Test NEGATIVE Stool Collect Date Stool Occult Blood Stool 2 Collect Date Stool Occult Blood #2 Stool 3 Collect Date Stool Occult Blood #3 COVID-19 ([place]) COVID-19 [facility] Com Blood Type Antibody Screen Crossmatch 03/06/21 03/06/21 03/06/21 17:25 17:50 18:03 WBC RBC Hgb Hct MCV MCH MCHC RDW Plt Count MPV Immature Gran % (Auto) Neut % (Auto) Lymph % (Auto) [place] % (Auto) Eos % (Auto) Baso % (Auto) Lymph # (Auto) [place] # (Auto) Eos # (Auto) Baso # (Auto) Abs Immat Gran (auto) Absolute Neuts (auto) Absolute Nucleated RBC Nucleated RBC % (auto) Smear Tech's Comments ESR 12 Absolute Retic Percent Retic Immature Retic Fraction Retic Hgb Equivalent Sodium Potassium Chloride Carbon Dioxide Anion Gap BUN Creatinine Estim Creat Clear Calc Estimated GFR Random Glucose Lactic Acid 1.2 Calcium Iron TIBC % Saturation Unsat Iron Binding Total Bilirubin Direct Bilirubin AST ALT Alkaline Phosphatase Lactate Dehydrogenase C-Reactive Protein Total Protein Albumin Lipase Urine Color Urine Appearance Urine pH Ur Specific Campbell Urine Protein Urine Glucose (UA) Urine Ketones Urine Blood Urine Nitrite Ur Leukocyte Esterase Urine RBC Urine WBC Ur Squamous Epith Cells Urine Bacteria Urine Mucus Urine Test Stool Collect Date Stool Occult Blood Stool 2 Collect Date Stool Occult Blood #2 Stool 3 Collect Date Stool Occult Blood #3 COVID-19 ([place]) COVID-19 [facility] Blood Type A Positive Antibody Screen NEGATIVE Crossmatch See Detail 03/06/21 03/06/21 03/07/21 18:03 18:03 05:28 WBC 6.4 RBC 4.22 Hgb 7.1 L Hct 27.3 L MCV 64.7 L MCH 16.8 L MCHC 26.0 L RDW 23.2 H Plt Count 265 MPV Immature Gran % (Auto) 0.2 Neut % (Auto) 61.6 Lymph % (Auto) 19.2 L [place] % (Auto) 18.4 H Eos % (Auto) 0.3 Baso % (Auto) 0.3 Lymph # (Auto) 1.2 [place] # (Auto) 1.2 Eos # (Auto) 0.0 Baso # (Auto) 0.0 Abs Immat Gran (auto) 0.01 Absolute Neuts (auto) 3.9 Absolute Nucleated RBC 0.000 Nucleated RBC % (auto) 0.0 Smear Tech's Comments VERIFIED ESR Absolute Retic Percent Retic Immature Retic Fraction Retic Hgb Equivalent Sodium Potassium Chloride Carbon Dioxide Anion Gap BUN Creatinine Estim Creat Clear Calc Estimated GFR Random Glucose Lactic Acid Calcium Iron TIBC % Saturation Unsat Iron Binding Total Bilirubin Direct Bilirubin AST ALT Alkaline Phosphatase Lactate Dehydrogenase C-Reactive Protein Total Protein Albumin Lipase Urine Color Urine Appearance Urine pH Ur Specific Campbell Urine Protein Urine Glucose (UA) Urine Ketones Urine Blood Urine Nitrite Ur Leukocyte Esterase Urine RBC Urine WBC Ur Squamous Epith Cells Urine Bacteria Urine Mucus Urine Test Stool Collect Date Cancelled Stool Occult Blood Cancelled NEGATIVE Stool 2 Collect Date Cancelled Stool Occult Blood #2 Cancelled Stool 3 Collect Date Cancelled Stool Occult Blood #3 Cancelled COVID-19 ([place]) COVID-19 [facility] Blood Type Antibody Screen Crossmatch 03/07/21 03/07/21 03/08/21 05:28 20:56 05:53 WBC 4.4 L RBC 4.35 Hgb 7.8 L 8.0 L Hct 28.3 L 29.4 L MCV 67.6 L MCH 18.4 L MCHC 27.2 L RDW 26.0 H Plt Count 278 MPV Not Reportable Immature Gran % (Auto) Neut % (Auto) Lymph % (Auto) [place] % (Auto) Eos % (Auto) Baso % (Auto) Lymph # (Auto) [place] # (Auto) Eos # (Auto) Baso # (Auto) Abs Immat Gran (auto) Absolute Neuts (auto) Absolute Nucleated RBC 0.000 Nucleated RBC % (auto) 0.0 Smear Tech's Comments ESR Absolute Retic Percent Retic Immature Retic Fraction Retic Hgb Equivalent Sodium 136 Potassium 3.6 Chloride 106 Carbon Dioxide 21 L Anion Gap 13 BUN 7 L Creatinine 0.68 Estim Creat Clear Calc 124.5 Estimated GFR > 60 Random Glucose 105 Lactic Acid Calcium 8.0 L D Iron TIBC % Saturation Unsat Iron Binding Total Bilirubin Direct Bilirubin AST ALT Alkaline Phosphatase Lactate Dehydrogenase C-Reactive Protein Total Protein Albumin Lipase Urine Color Urine Appearance Urine pH Ur Specific Campbell Urine Protein Urine Glucose (UA) Urine Ketones Urine Blood Urine Nitrite Ur Leukocyte Esterase Urine RBC Urine WBC Ur Squamous Epith Cells Urine Bacteria Urine Mucus Urine Test Stool Collect Date Stool Occult Blood Stool 2 Collect Date Stool Occult Blood #2 Stool 3 Collect Date Stool Occult Blood #3 COVID-19 ([place]) COVID-19 [facility] Blood Type Antibody Screen Crossmatch 03/08/21 05:53 WBC RBC Hgb Hct MCV MCH MCHC RDW Plt Count MPV Immature Gran % (Auto) Neut % (Auto) Lymph % (Auto) [place] % (Auto) Eos % (Auto) Baso % (Auto) Lymph # (Auto) [place] # (Auto) Eos # (Auto) Baso # (Auto) Abs Immat Gran (auto) Absolute Neuts (auto) Absolute Nucleated RBC Nucleated RBC % (auto) Smear Tech's Comments ESR Absolute Retic Percent Retic Immature Retic Fraction Retic Hgb Equivalent Sodium 140 Potassium 3.6 Chloride 108 Carbon Dioxide 23 Anion Gap 13 BUN 4 L Creatinine 0.64 Estim Creat Clear Calc 131.8 Estimated GFR > 60 Random Glucose 104 Lactic Acid Calcium 8.3 L Iron TIBC % Saturation Unsat Iron Binding Total Bilirubin 0.7 Direct Bilirubin 0.3 AST 16 ALT < 6 Alkaline Phosphatase 72 D Lactate Dehydrogenase 173 C-Reactive Protein Total Protein 5.6 L Albumin 3.3 L Lipase Urine Color Urine Appearance Urine pH Ur Specific Campbell Urine Protein Urine Glucose (UA) Urine Ketones Urine Blood Urine Nitrite Ur Leukocyte Esterase Urine RBC Urine WBC Ur Squamous Epith Cells Urine Bacteria Urine Mucus Urine Test Stool Collect Date Stool Occult Blood Stool 2 Collect Date Stool Occult Blood #2 Stool 3 Collect Date Stool Occult Blood #3 COVID-19 ([place]) COVID-19 Clin Com Blood Type Antibody Screen Crossmatch Airway Mallampati Class: II TM Dist: >3cm Neck ROM: Full Loose/Missing/Broken Teeth: No Assessment and Plan Assessment Anesthesia Assessment: Anesthesia Plan Discussed and Chart Reviewed Final Anesthetic Review NPO: Yes ASA Class: II Final Preanesthetic Review: No Changes in Pt Med Stat, Meds/Allgs Chart Reviewed, Consent Obtained/Reviewed and Anes Risks/Benef Reviewed Patient Risk: Low Procedure Risk: Low Anesthetic Plan Anesthetic Plan: MAC: Disposition: Standard PACU
--- NOTE | 2021-03-08 13:20 | MHC.SHP ---
Pre-Procedural Eval Section A Date of Service: 03/08/21 The patient is an INPATIENT: Yes The History & Physical has been completed within 30 days and I have reviewed it.: Yes Section B Chief Complaint: anemia Allergies: Allergies Allergy/AdvReac Type Severity Reaction Status Date / Time No Known Allergies Allergy Verified 03/08/21 13:00 [No Known Allergies*] Plan Diagnosis/Plan: Unchanged I have reviewed the history and physical and performed a pertinent physical examination on my patient. No changes have occurred unless specified.
--- NOTE | 2021-03-08 13:21 | P.BOP_ITS ---
Brief Operative Note Date of Service: 03/08/21 Pre-op diagnosis: anemia Post-op diagnosis: same Procedure: see op note Surgeon: Nikole Gonzalez MD Anesthesia: MAC Was an Finger Grip Machine Operator used for this Procedure?: No Estimated blood loss (mL): 0 Condition: stable Disposition: PACU
--- NOTE | 2021-03-08 13:21 | W.PM.OPN ---
Operative Note Operative Note Date of Service: 03/08/21 Narrative: Operative Information Procedure Description: Colonoscopy COLONOSCOPY Instrument: Olympus variable stiffness pediatric scope 190L Colonoscopy Monitoring: Vital signs and clinical assessment, continuous EKG monitoring, Pulse oximetry, Carbon Dioxide monitoring and blood pressure monitoring were done throughout the procedure. Colon withdrawal time was 8 minutes. Procedure: The patient was placed in the left lateral decubitis position and pre-procedure medications were administered. After a digital rectal examination of the ano-rectum, the video colonoscope was inserted into the rectum and advanced through the colon to the cecum/TI. The colonoscope was slowly withdrawn in a retrograde panoramic fashion and the colon mucosa was carefully examined including a retroflexed view of the rectum. Findings and interventions are described below. Procedure Difficulty:easy Mucosa appeared granular and edematous thru out colon, bx were taken from TI and right colon, eft colon and rectum in separate jars Findings: Terminal Ileum-normal Cecum: granular mucosa with edema Ascending Colon: granular mucosa with edema Transverse Colon -granular mucosa with edema Descending Colon:granular mucosa with edema Sigmoid Colon: granular mucosa with edema Rectum: Retroflexion with moderate sized internal hemorrhoids, grade I Anorectum - normal Colon preparation: [place] Bowel Preparation Scale Right colon; 3 Transverse colon: 3 Left colon; 3 (0 = Unprepared colon segment with mucosa not seen due to solid stool that cannot be cleared. 1 = Portion of mucosa of the colon segment seen, but other areas of the colon segment not well seen due to staining, residual stool and/or opaque liquid. 2 = Minor amount of residual staining, small fragments of stool and/or opaque liquid, but mucosa of colon segment seen well. 3 = Entire mucosa of colon segment seen well with no residual staining, small fragments of stool or opaque liquid) Impression and Post Procedure Diagnosis: non specific colitis Plan: High fiber diet leaflet Avoid straining at stool, epsom salts and sitz bath, anusol supps or cream Repeat Colonoscopy aged 45 yrs or earlier if clinically indicated o/p capsule endoscopy needs to be adherent to mutlivitamin and iron treatment Above findings were reviewed with the patient and relevant handouts were provided if indicated.
[2021-03-08] MEDS: Lactated Ringers 1,000 ML 50 ML IVCONT (13:22)
[2021-03-08 14:38] LABS: Leukocytes Stool Qualitative MANY: >10/OIF (NEGATIVE)
[2021-03-08 15:00] LABS: CDiff Gene PCR NEGATIVE (Negative)
--- NOTE | 2021-03-08 15:01 | PM.DS ---
DS: Providers Provider Date of Service: 03/08/21 <OLESYA Powers - Last Filed: 03/08/21 15:11> Date of admission: 03/06/21 21:58 <OLESYA Powers - Last Filed: 03/08/21 15:11> Primary care physician: Dennise Chambers MD <OLESYA Powers - Last Filed: 03/08/21 15:11> Consults: 03/06/21 22:00 Consult to Gastroenterology Routine Consulting Provider: Nikole Gonzalez Reason for consultation: Anemia <OLESYA Powers Last Filed: 03/08/21 15:11> DS: Diagnosis Discharge Diagnosis (1) Microcytic anemia: Status: Acute <OLESYA Powers Last Filed: 03/08/21 15:11> (2) Esophagitis: Status: Acute <OLESYA Powers Last Filed: 03/08/21 15:11> (3) Enterocolitis: Status: Acute <OLESYA Powers Last Filed: 03/08/21 15:11> DS: Medications Discharge Medications Home Medications: Previous Rx's Medication Instructions Recorded amoxicillin-pot clavulanate 1 tab PO BID 3 Days #6 tab 03/08/21 [Augmentin] ferrous sulfate [Feosol] 325 mg PO DAILY #30 tab 03/08/21 multivitamin [Daily Multi-Vitamin] 1 tab PO DAILY #30 tab 03/08/21 pantoprazole 20 mg PO DAILY 30 Days #30 tab 03/08/21 <OLESYA Powers Last Filed: 03/08/21 15:11> DS: Summary Hospital Course Hospital Course: from H&P on day of admission 35-year-old female with no significant past medical history presented to the hospital with a chief complaint of nausea vomiting and abdominal discomfort. Patient reported that she has been having nausea vomiting and loose stools over the past couple days and noted to have left-sided abdominal pain. Denies any numbness tingling. Reports her stool is black in color. Denies any chest pain or palpitations. Denies any urinary symptoms. Denies being on antibiotics are taking [id number] pain medications. Patient reports her menstrual cycles are regular, denies any excessive bleeding. Review of all other systems is negative except mentioned above ER course: Per ER team patient noted to have left-sided abdominal tenderness, CT scan showed enterocolitis. Given antibiotics. On the last patient also noted to have anemia with hemoglobin 6.8. Stool guaiac was negative. Patient being transfused blood. ER team also spoke to Dr. Taylor from Gastroenterology and plan for endoscopy tomorrow morning. microcytic anemia. Stool guaiac was negative. No black stools, normal menstrual cycles with no excessive bleeding. Transfused 2 units of blood. no evidence of hemolysis. low iron studies, ? related to absorption from gastric bypass vs acute bleeding vs iron def. anemia dates back to 2018. Underwent EGD 03/07 mild esophagitis and colonoscopy 03/08 showing non-specific colitis. will be discharged with multivitamine, iron supplementation and po ppi. should follow up outpatient with GI for capsule study. b12, folate levels pending at time of discharge colitis. Colonoscopy done 03/08 shows diffuse nonspecific colitis. Will discharge home to complete course of antibiotics. Recommend high-fiber diet. Attending Attestation: Patient seen and examined independently and I was present during [place] portion of E/M service. Agree with OLESYA Stone's history, physical, assessment, and plan. <OLESYA Powers - Last Filed: 03/08/21 15:11> Time Spent with Patient Time attestation: Total time spent providing and/or coordinating discharge services: <OLESYA Powers - Last Filed: 03/08/21 15:11> Discharge coordination time: Greater than 30 minutes <OLESYA Powers - Last Filed: 03/08/21 15:11> Quality: Stroke Does the patient have a stroke diagnosis?: No <OLESYA Powers - Last Filed: 03/08/21 15:11> Physical Exam Vital Signs: Vital Signs: Last Vital Signs Temp 98.2 F 03/08/21 14:06 Pulse 91 03/08/21 14:06 Resp 18 03/08/21 14:06 BP 114/64 03/08/21 14:06 Pulse Ox 100 03/08/21 14:06 Body Mass Index 27.9 <OLESYA Powers - Last Filed: 03/08/21 15:11> Const: Nutritional Appearance: well nourished <OLESYA Powers - Last Filed: 03/08/21 15:11> Orientation/consciousness: patient oriented x3 <OLESYA Powers - Last Filed: 03/08/21 15:11> HENMT: Head: Yes normocephalic and Yes atraumatic <OLESYA Powers - Last Filed: 03/08/21 15:11> Eyes: Sclerae: sclerae normal <OLESYA Powers - Last Filed: 03/08/21 15:11> Resp: Effort & Inspection: normal respiratory effort and no respiratory distress <OLESYA Powers - Last Filed: 03/08/21 15:11> Cardio: Rate: regular rate <OLESYA Powers - Last Filed: 03/08/21 15:11> Rhythm: regular rhythm <OLESYA Powers - Last Filed: 03/08/21 15:11> GI: Palpation (GI): Soft to palpation and nontender <OLESYA Powers - Last Filed: 03/08/21 15:11> Neuro: General: patient oriented x3 <OLESYA Powers - Last Filed: 03/08/21 15:11> Cranial nerves: Yes CN's II-XII intact bilaterally and Yes Bilaterally intact EOM present <OLESYA Powers - Last Filed: 03/08/21 15:11> DS: Data Data Completed and Pending Pending studies at discharge: Pending at discharge 03/08/21 13:42 Surgical [PTH] Routine <OLESYA Powers - Last Filed: 03/08/21 15:11> Labs on day of discharge: Laboratory Results - last 24 hr 03/06/21 03/07/21 03/08/21 17:50 20:56 05:53 WBC 4.4 L RBC 4.35 Hgb 7.8 L 8.0 L Hct 28.3 L 29.4 L MCV 67.6 L MCH 18.4 L MCHC 27.2 L RDW 26.0 H Plt Count 278 MPV Not Reportable Absolute Nucleated RBC 0.000 Nucleated RBC % (auto) 0.0 Sodium Potassium Chloride Carbon Dioxide Anion Gap BUN Creatinine Estim Creat Clear Calc Estimated GFR Random Glucose Calcium Total Bilirubin Direct Bilirubin AST ALT Alkaline Phosphatase Lactate Dehydrogenase Total Protein Albumin Stool Leukocytes, Qual C. difficile Tox B Gene Blood Type A Positive Antibody Screen NEGATIVE Crossmatch See Detail 03/08/21 03/08/21 03/08/21 05:53 13:00 13:01 WBC RBC Hgb Hct MCV MCH MCHC RDW Plt Count MPV Absolute Nucleated RBC Nucleated RBC % (auto) Sodium 140 Potassium 3.6 Chloride 108 Carbon Dioxide 23 Anion Gap 13 BUN 4 L Creatinine 0.64 Estim Creat Clear Calc 131.8 Estimated GFR > 60 Random Glucose 104 Calcium 8.3 L Total Bilirubin 0.7 Direct Bilirubin 0.3 AST 16 ALT < 6 Alkaline Phosphatase 72 D Lactate Dehydrogenase 173 Total Protein 5.6 L Albumin 3.3 L Stool Leukocytes, Qual MANY: >10/OIF C. difficile Tox B Gene NEGATIVE Blood Type Antibody Screen Crossmatch Preliminary micro results at discharge 03/06/21 18:04 Blood Culture - Preliminary Blood - Venous No growth after 24 hours. 03/06/21 18:03 Blood Culture - Preliminary Blood - Venous No growth after 24 hours. <OLESYA Powers - Last Filed: 03/08/21 15:11> Discharge Plan Discharge Patient Disposition: Home, Self-Care <OLESYA Powers - Last Filed: 03/08/21 15:11> Discharge Diagnosis: colitis microcytic anemia <OLESYA Powers - Last Filed: 03/08/21 15:11> colitis microcytic anemia <Pelon Pacheco MD - Last Filed: 03/09/21 16:49> Referrals: Nikole Gonzalez MD [Physician] - 1 Week Dennise Burch MD [Primary Care Provider] - 1 Week (You should receive a call from your Physician's Office for an appointment. ) <OLESYA Powers - Last Filed: 03/08/21 15:11> Discharge Medications: New multivitamin [Daily Multi-Vitamin] Tablet 1 tab PO DAILY Qty: 30 RF: 0 ferrous sulfate [Feosol] 325 mg (65 mg iron) tablet 325 mg PO DAILY Qty: 30 RF: 0 amoxicillin-pot clavulanate [Augmentin] 875-125 mg tablet 1 tab PO BID 3 Days Qty: 6 RF: 0 pantoprazole 20 mg tablet,delayed release (DR/EC) 20 mg PO DAILY 30 Days Qty: 30 RF: 0 <OLESYA Powers - Last Filed: 03/08/21 15:11> Discharge Orders: Discharge Order (Routine); Ordered 03/08/21 Ordered By: Sidra Love <OLESYA Powers - Last Filed: 03/08/21 15:11> Activity on Discharge: As tolerated <OLESYA Powers - Last Filed: 03/08/21 15:11> As tolerated <Pelon Pacheco MD - Last Filed: 03/09/21 16:49> Stand Alone Forms: Patient Portal Discharge page <OLESYA Powers - Last Filed: 03/08/21 15:11> Care Plan Goals: see below <OLESYA Powers - Last Filed: 03/08/21 15:11> Health Concerns: Mild esophagitis colitis anemia <OLESYA Powers - Last Filed: 03/08/21 15:11> Plan of Treatment: colitis. finish antibiotics. Call to schedule follow-up appointment with GI esophagitis take pantoprazole daily. may need outpatient capsule endoscopy anemia. take multivitamin, iron supplementation. call to schedule follow up with PCP <OLESYA Powers - Last Filed: 03/08/21 15:11> Assessment: see discharge summary <OLESYA Powers - Last Filed: 03/08/21 15:11> Discharge Date/Time: 03/08/21 17:00 <OLESYA Powers - Last Filed: 03/08/21 15:11>
--- NOTE | 2021-03-08 15:15 | MHC.CM.PN ---
Patient has been medically cleared for dc to home today, no services.
[2021-03-08 17:05] LABS: Vitamin B12 1048 pg/mL (200-900)
[2021-03-09 13:36] LABS: Haptoglobin 168 mg/dL (43-212)
== END 2021-03-08 17:00 | disposition home or self-care (01) | DRG 249 ==
LOC: HO.ED 21:00 → HO.EDOVER 22:09 → HO.IMC 23:28
PROVIDERS: Internal Medicine Gastroenterology; Nurse Practitioner Acute Care; Physician Assistant; Physician Assistant Medical; Admitting Provider Hospitalist; Emergency Provider Emergency Medicine Emergency Medical Services; PCP Internal Medicine; Visit Provider Family Medicine
PROC: 0DJ08ZZ Inspection of Upper Intestinal Tract, Via Natural or Artificial Opening Endoscopic (ICD-10-PCS; CPT 43235; principal; 2021-03-07 13:50)
PROC: 0DJD8ZZ Inspection of Lower Intestinal Tract, Via Natural or Artificial Opening Endoscopic (ICD-10-PCS; CPT 45378; principal; 2021-03-08 15:20)
DX: K52.9 Noninfective gastroenteritis and colitis, unspecified (principal); D62 Acute posthemorrhagic anemia; K20.90 Esophagitis, unspecified without bleeding; K44.9 Diaphragmatic hernia without obstruction or gangrene; Z20.822 Contact with and (suspected) exposure to COVID-19; Z98.84 Bariatric surgery status; Z79.899 Other long term (current) drug therapy
CPT/HCPCS: 36415; 74177; 80048; 80076; 81001; 81025; 82272; 82607; 82746; 83010; 83540; 83605; 83615; 83690; 85014; 85018; 85025; 85027; 85045; 85652; 86140; 86850; 86900; 86901; 86923; 87040; 87045; 87046; 87086; 87493; 87635; 88305; 89055; 99285; J0696; J1170; P9016; Q0163; Q9967

== ENCOUNTER 2021-06-17 09:23 | Emergency (ER) | payer OTHER, SELFPAY ==
--- NOTE | ~2021-06-17 | XR_ITS ---
EXAMINATION: XR SHOULDER, LEFT CLINICAL INFORMATION: Left shoulder pain. COMPARISON: None TECHNIQUE: Three views of the left shoulder. FINDINGS: The bones and soft tissues are normal. No fracture. Glenohumeral and acromioclavicular alignment is anatomic with normal joint space. No abnormal soft tissue calcifications. XR/XR shoulder LT 1V IMPRESSION: Normal left shoulder.
[2021-06-17 09:27] VITALS: BP 132/78; PULSE 92; RESP 16; TEMP 36.6; O2SAT 100; BMI 29.0
--- NOTE | 2021-06-17 09:46 | ED.EXTPRO ---
HPI - Extremity Problem General Chief complaint: Extremity Injury, Upper Stated complaint: l shoulder pain Time Seen by Provider: 06/17/21 09:37 Source: patient Mode of arrival: ambulatory Limitations: no limitations History of Present Illness MD Complaint: extremity pain Onset (ago): week(s) (2) Pain Consistency: intermittent Location: left and upper extremity Quality: aching and dull Radiation: none Relieving factors: nothing Exacerbating factors: range of motion Associated symptoms: denies other symptoms Context: other (has been moving and lifting heavy boxes) Related Data Previous Rx's Medication Instructions Recorded ferrous sulfate 325 mg (65 mg 325 mg PO DAILY #30 tab 03/08/21 iron) tablet (Feosol) multivitamin (Daily Multi-Vitamin) 1 tab PO DAILY #30 tab 03/08/21 pantoprazole 20 mg tablet,delayed 20 mg PO DAILY 30 Days #30 tab 03/08/21 release cyclobenzaprine 10 mg tablet 10 mg PO TID PRN #14 tab 06/17/21 lidocaine 4 % topical patch 1 patch TOPICAL DAILY PRN #10 ea 06/17/21 Allergies Allergy/AdvReac Type Severity Reaction Status Date / Time No Known Allergies Allergy Verified 03/21/21 13:17 [No Known Allergies*] Review of Systems Review of Systems: Constitutional : No Fever, No Chills Cardiovascular : No Chest Pain, No SOB Respiratory : No Cough, No Dyspnea Gastrointestinal : No Nausea, No Vomiting, No Diarrhea, No abdominal Pain Musculoskeletal : positive joint pain, No Myalgias, No Joint Swelling Skin : No Skin lacerations, No rash Neuro : No Weakness, No Numbness Psych : No Anxiety/Panic, No Depression PMFSH Past Medical History Attestation statement: The following information was validated with the patient. Medical History Esophagitis Microcytic anemia Surgical History Gastric bypass status for obesity Family History Family History Mother Hypertension Social History Social History Household Members: Spouse and Children Housing: Apartment Do you presently have visiting nurse or other home services: No Alcohol intake: never Patient Tobacco Use Status: Never used Tobacco e-Cigarette/Vaping Use: Never Used Second Hand Smoke Exposure: No Use of substances other than those prescribed or required for medical reasons: No Advance Directives: No Advance Directives Information Provided: No Patient : No service: No Current occupational status: employed Current occupational exposures/hazards: No Physical Exam Vital Signs: Vital Signs: Last Vital Signs Temp 98.0 F 06/17/21 09:47 Pulse 69 06/17/21 09:47 Resp 18 06/17/21 09:47 BP 121/81 06/17/21 09:47 Pulse Ox 100 06/17/21 09:47 Body Mass Index 29.0 Appearance: Alert. Oriented X3. No acute distress. Eyes: Pupils equal, round and reactive to light. ENT: Pharynx normal. Neck: Normal inspection. Neck supple. CVS: Normal heart rate and rhythm. Pulses normal. Respiratory: No respiratory distress. Breath sounds normal. Abdomen: Soft and nontender. Skin: Skin warm and dry. Normal skin color. Extremities: No lower extremity edema. ttp along L trapezius and bicep area - distal NV intact, pain with ROM testing Neuro: Oriented X 3. No motor deficit. No sensory deficit. MDM - Extremity (Nontraumatic) MDM Narrative Medical decision making narrative: 35 yo female with recent moving and heavy lifting c/o L shoulder pain, xray from triage ordered, she is NV intact, no CP/SOB - suspect strain vs tendonitis will start on flexeril and lidocaine - dispo per results and findings. Discharge Plan Discharge Clinical Impression: Left shoulder strain Qualifiers: Encounter type: initial encounter Qualified Code(s): S46.912A - Strain of unspecified muscle, fascia and tendon at shoulder and upper arm level, left arm, initial encounter Patient Disposition: Home, Self-Care Instructions: Muscle Strain (ED) Additional Instructions: return to ED for any worsening symptoms or concerns if not better in 3 days call PCP for possible physical therapy referral your xray was normal Prescriptions: New cyclobenzaprine 10 mg tablet 10 mg PO TID PRN (Reason: muscle spasm) Qty: 14 RF: 0 lidocaine 4 % adhesive patch,medicated 1 patch topical DAILY PRN (Reason: pain) Qty: 10 RF: 0 No Action multivitamin [Daily Multi-Vitamin] Tablet 1 tab PO DAILY Qty: 30 RF: 0 ferrous sulfate [Feosol] 325 mg (65 mg iron) tablet 325 mg PO DAILY Qty: 30 RF: 0 pantoprazole 20 mg tablet,delayed release (DR/EC) 20 mg PO DAILY 30 Days Qty: 30 RF: 0 Stand Alone Forms: Work/School Release
[2021-06-17 09:47] VITALS: BP 121/81; PULSE 69; RESP 18; TEMP 36.7; O2SAT 100
== END 2021-06-17 10:13 | disposition home or self-care (01) ==
PROVIDERS: Emergency Provider Emergency Medicine; PCP Internal Medicine
DX: S46.912A Strain of unspecified muscle, fascia and tendon at shoulder and upper arm level, left arm, initial encounter (principal); X50.0XXA Overexertion from strenuous movement or load, initial encounter; Y93.9 Activity, unspecified; Y92.9 Unspecified place or not applicable; Y99.9 Unspecified external cause status
CPT/HCPCS: 73020; 99283; 99284

== ENCOUNTER 2021-06-23 10:19 | Outpatient (REF) | payer OTHER, SELFPAY ==
[2021-06-23 10:36] LABS: MANUAL DIFF FLAG NO
[2021-06-23 11:01] LABS: Basophils Percent Auto 0.4 % (0-2); Eosinophils Absolute Auto 0.1 X10*3/uL (0.0-0.4); Eosinophils Percent Auto 2.6 % (0-4); Hematocrit 33.3 % (37-47); Hemoglobin 9.9 g/dl (12.0-16.0); Imm Gran Abs Auto 0.01 X10*3/uL (0.00-0.03); Imm Gran Pct Auto 0.2 % (0.0-0.4); Lymphocytes Absolute Auto 1.4 X10*3/uL (1.2-4.9); Lymphocytes Percent Auto 31.1 % (20-40); Mean Corpuscular HGB Conc 29.7 g/dl (31.0-35.0); Mean Corpuscular Volume 73.8 fL (80-98); Mean Platelet Volume 11.1 fL (9.4-12.3); Monocytes Absolute Auto 0.4 X10*3/uL (0.1-1.2); Monocytes Percent Auto 8.8 % (2-11); Neutrophils Absolute Auto 2.6 X10*3/uL (2.0-8.3); Neutrophils Percent Auto 56.9 % (45-73); Platelet Count 284 X10*3/uL (160-400); Red Blood Count 4.51 X10*6/uL (4.20-5.50); Red Cell Distribution Width 14.2 % (11.0-16.0); White Blood Count 4.5 X10*3/uL (4.8-10.8)
[2021-06-23 11:41] LABS: Iron 15 mcg/dL (30-160); Percent Iron Saturation 3 % (15-50); Total Iron Binding Capacity 518 mcg/dL (228-428); Unsaturated Iron Binding 503 ug/dL
[2021-06-28 15:42] LABS: Vitamin D 25-OH, D2 <4 ng/mL; Vitamin D 25-OH, D3 11 ng/mL; Vitamin D 25-OH, Total 11 ng/mL (30-100)
== END 2021-06-23 10:20 | disposition home or self-care (01) ==
LOC: HO.LAB 10:19
PROVIDERS: PCP Internal Medicine; Visit Provider Internal Medicine
DX: E55.9 Vitamin D deficiency, unspecified (principal); D64.9 Anemia, unspecified
CPT/HCPCS: 36415; 82306; 83540; 85025

== ENCOUNTER 2021-10-04 06:06 | Outpatient (REF) | payer OTHER, SELFPAY ==
[2021-10-04 06:18] LABS: MANUAL DIFF FLAG NO
[2021-10-04 07:22] LABS: Basophils Percent Auto 0.5 % (0-2); Eosinophils Absolute Auto 0.1 X10*3/uL (0.0-0.4); Hematocrit 34.1 % (37.0-47.0); Hemoglobin 10.1 g/dl (12.0-16.0); Imm Gran Abs Auto 0.01 X10*3/uL (0.00-0.03); Imm Gran Pct Auto 0.2 % (0.0-0.4); Immature Retic Fraction 13.6 % (3.0-15.9); Lymphocytes Absolute Auto 1.6 X10*3/uL (1.2-4.9); Lymphocytes Percent Auto 36.8 % (20-40); Mean Corpuscular HGB Conc 29.6 g/dl (31.0-35.0); Mean Corpuscular Hemoglobin 22.8 pg (27.0-33.0); Monocytes Absolute Auto 0.5 X10*3/uL (0.1-1.2); Monocytes Percent Auto 10.4 % (2-11); Neutrophils Absolute Auto 2.1 x10*3/uL (2.0-8.3); Neutrophils Percent Auto 49.1 % (45-73); Platelet Count 231 X10*3/uL (160-400); Red Blood Count 4.43 X10*6/uL (4.20-5.50); Red Cell Distribution Width 14.3 % (11.0-16.0); Retic HGB Equivalent 25.9 pg (30.0-35.0); Reticulocyte Percent 0.7 % (0.5-1.8); White Blood Count 4.3 X10*3/uL (4.8-10.8)
[2021-10-04 07:30] LABS: Estimated Average Glucose 103 mg/dL; Hemoglobin A1c % 5.2 %
[2021-10-04 08:01] LABS: Alanine Aminotransferase 8 U/L (0-31); Albumin Level 4.1 g/dL (3.5-5.0); Alkaline Phosphatase 84 U/L (39-117); Anion Gap 12 (12-20); Aspartate Amino Transferase 20 U/L (5-31); Bilirubin Total 0.8 mg/dL (0.0-1.0); Blood Urea Nitrogen 11 mg/dL (9-16); Calcium 8.9 mg/dL (8.4-10.2); Carbon Dioxide 26 mmol/L (22-29); Chloride 106 mmol/L (96-108); Estimated Glomerular Filt Rate > 60; Glucose Random 92 mg/dL (60-115); Iron 32 mcg/dL (30-160); Potassium 4.9 mmol/L (3.3-5.1); Sodium 139 mmol/L (135-145); Total Protein 6.8 g/dL (6.5-8.0)
[2021-10-04 08:10] LABS: Ferritin 5 ng/mL (10-122)
[2021-10-04 08:19] LABS: Percent Iron Saturation 6 % (15-50); Total Iron Binding Capacity 542 mcg/dL (228-428); Unsaturated Iron Binding 510 ug/dL
[2021-10-04 08:41] LABS: Folate 15.3 ng/mL (> or = 4.0); Vitamin B12 540 pg/mL (200-900)
== END 2021-10-04 06:07 | disposition home or self-care (01) ==
LOC: HO.LAB 06:06
PROVIDERS: PCP Internal Medicine; Visit Provider Internal Medicine
DX: D50.9 Iron deficiency anemia, unspecified (principal); R73.02 Impaired glucose tolerance (oral)
CPT/HCPCS: 36415; 80053; 82607; 82728; 82746; 83036; 83540; 85025; 85045

== ENCOUNTER → 2021-10-09 08:21 | Outpatient (BNVA) | payer OTHER, SELFPAY | PROVIDERS: PCP Internal Medicine; Visit Provider Internal Medicine | DX: M77.11 Lateral epicondylitis, right elbow (principal) | CPT/HCPCS: 99203 ==

== ENCOUNTER → 2021-10-15 15:26 | Outpatient (BNV) | payer MEDICAID, OTHER, SELFPAY | PROVIDERS: PCP Internal Medicine; Referring Provider Internal Medicine; Visit Provider Internal Medicine | DX: D50.9 Iron deficiency anemia, unspecified (principal) | CPT/HCPCS: 99203; 99213; G2211 ==

== ENCOUNTER → 2021-10-23 14:53 | Outpatient (BNVA) | payer OTHER, SELFPAY | PROVIDERS: PCP Internal Medicine; Visit Provider Internal Medicine | DX: M77.11 Lateral epicondylitis, right elbow (principal) | CPT/HCPCS: 99213 ==

== ENCOUNTER 2021-10-24 15:30 | Outpatient (RCR) | payer OTHER, SELFPAY ==
--- NOTE | 2021-10-11 15:02 | MHC.OT.OEV ---
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 She reports pain in her right arm and elbow, persistent over the past three months with no relief. She reported the injury in September and she had appt in work connection two days ago. She was given CFB and resting wrist orthosis and placed on light duty. 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 Cares for her (on disability - uses RW) Current Level of Function and Occupation Self Care, Employment, Leisure: Light duty at work Difficulty getting dressed, carrying larger items, opening cans/jars Sleep: Mild disturbance due to pain Pain Assessment Pain Score: 5 Pain Scale Used: Numeric (0 - 10) Pain Location and Description: Pinpoints pain to right lateral elbow, tender to palpate gently 5/10 resting 9/10 w/ gripping/use Aggravating Factors: Grasping, carrying heavy objects Alleviating Factors: Cooling cream Nerve assessment Ulnar Nerve: WNL Median Nerve: WNL Radial Nerve: WNL Sensory Assessment Comments: Denies sensory changes Edema Assessment Comments: Mild edema at right lat epi, palpable Dexterity Assessment Dexterity: WFL Special Tests Comments: Pain w/ resisted wrist extension AROM(PROM) Strength Shoulder Flexion: Extension: Abduction: Internal Rotation: External Rotation: Comments: WFL Flexion: Extension: Abduction: Internal Rotation: External Rotation: Comments: Elbow Flexion: Extension: Pronation: Supination: Comments: WFL Flexion: Extension: Pronation: Supination: Comments: Wrist Flexion: Extension: Ulnar Deviation: Radial Deviation: Comments: WFL Flexion: Extension: Ulnar Deviation: Radial Deviation: Comments: WFL Thumb Thumb CMC Flexion: Thumb MCP Flexion: Thumb IP Flexion: Radial Abduction: Palmar Abduction: Fontana (Kapandji 0-10): Comments: WFL Digits Index MCP: PIP: DIP: Long MCP: PIP: DIP: Ring MCP: PIP: DIP: Small MCP: PIP: DIP: Comments: WFL Gross Grasp: R 18lbs L 66lbs Lateral Pinch: R 10lbs L 10lbs Two-Point Pinch: R 3lbs L 3lbs Three-Jaw Sushant: R 3lbs L 4lbs Comments: Pain w/ right gross grasp, 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 Patient demonstrates Patient verbalizes Barriers to Learning: None Readiness for Learning: Accepting Who was educated? Patient Comments: Plan of Care Assessment: 36 yo female presents after a couple months w/ right lateral elbow pain due to overuse of hand with detailed work tasks. She has had difficulty w/ grasping and carrying heavy objects, and pain is localized to right lateral elbow, also tenderness w/ palpation. On assessment, she has good ROM, but limited strength and submaximal effort with grasp due to increased pain and apprehension. She has been given resting wrist orthosis and counter force brace to allow rest of extensors. She will benefit from continued therapy services for joint protection, activity modification and progression of strengthening. 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 Goals: Pain free rest in right elbow <4/10 pain w/ moderate use for work and daily activity QuickDASH score <30 pts Pt to demo light and carry >20lb w/ good bimanual posture Gross grasp >45lb w/ minimal increase in pain Frequency and Duration: The patient will be seen 3x/wk for 3 weeks Treatment Plan: Therapeutic Exercise Therapeutic Activity Home Exercise Program Splinting Patient Education Edema Control ADL Training Ultrasound Iontophoresis MHP Cold Packs Joint Mobilization Soft Tissue Mobilization Kinesiotaping CFB Ionto w/ Dex Electronically Signed By: Chrystal Zapka, OTR/L Please sign and return to therapist, Thank you for your referral.
--- NOTE | 2021-11-02 15:44 | MHC.OT.DC ---
[address] [phone] F: [phone] Occupational Therapy Discharge Note Provider: Dr Howell Diagnosis: Right lateral epicondylitis Date of Surgery: Date of Evaluation: 10/11/21 Date of Discharge: 11/02/21 Treatments to Date: 3 Cancellations to Date: No Shows to Date: 3 Discharge Status: Visit Non-compliance Discharge Summary: Pt has been inconsistant with elbow protection out of work. Good tolerance with low resistance eccentric ex. Needs practice Electronically Signed By: Gena Romano OT CHT CLT Reviewed/agree with student documentation: N/A Therapist: Please Sign and return to therapist, thank you for your referral.
== END 2021-11-05 11:29 | disposition home or self-care (01) ==
LOC: HO.OT 15:30
PROVIDERS: PCP Internal Medicine; Visit Provider Internal Medicine
DX: M77.11 Lateral epicondylitis, right elbow (principal)
CPT/HCPCS: 97033; 97110; 97140; 97165

== ENCOUNTER 2021-11-01 07:53 | Outpatient (REF) | payer OTHER, SELFPAY | END 2021-11-01 07:54 | disposition home or self-care (01) | LOC: HO.MDS 07:53 | PROVIDERS: Visit Provider Internal Medicine | DX: D50.9 Iron deficiency anemia, unspecified (principal) | CPT/HCPCS: 96365; 96366; J1200; J1750; Q0163 ==

== ENCOUNTER → 2021-11-30 13:16 | Outpatient (BNVA) | payer OTHER, SELFPAY | PROVIDERS: PCP Internal Medicine; Visit Provider Internal Medicine | DX: M77.11 Lateral epicondylitis, right elbow (principal) | CPT/HCPCS: 99213 ==

== ENCOUNTER 2022-01-21 12:55 | Outpatient (REF) | payer OTHER, SELFPAY ==
[2022-01-21 13:46] LABS: COVID-19 Test Negative (Negative); IDNOW Serial# 9DB6401D
== END 2022-01-21 12:56 | disposition home or self-care (01) ==
LOC: HO.LAB 12:55
PROVIDERS: Visit Provider Internal Medicine
DX: Z20.822 Contact with and (suspected) exposure to COVID-19 (principal)
CPT/HCPCS: 87635; C9803

== ENCOUNTER 2022-02-05 07:19 | Emergency (ER) | payer OTHER, SELFPAY ==
--- NOTE | 2022-02-05 | ECG_ITS ---
Test Reason : dyspnea Blood Pressure : / mmHG Vent. Rate : 081 BPM Atrial Rate : 081 BPM P-R Int : 150 ms QRS Dur : 092 ms QT Int : 358 ms P-R-T Axes : -17 023 024 degrees QTc Int : 415 ms Normal sinus rhythm Normal ECG No previous ECGs available Referred By: Generic ED Physician Electronically Signed By:SHYANNE BARAJAS
--- NOTE | ~2022-02-05 | XR_ITS ---
EXAMINATION: XR CHEST CLINICAL INFORMATION: Dyspnea. COMPARISON: 05/01/2017 chest radiograph. TECHNIQUE: Frontal view of the chest was obtained. FINDINGS: No significant abnormality is noted involving the heart, lungs, mediastinum, bony thorax or soft tissues. XR/XR chest 1V IMPRESSION: No acute cardiopulmonary process.
[2022-02-05 07:30] VITALS: BP 117/72; PULSE 91; RESP 20; TEMP 37.2; O2SAT 100; BMI 32.5
[2022-02-05 07:45] VITALS: BP 117/72; PULSE 95; RESP 18; TEMP 37.2; O2SAT 100
--- NOTE | 2022-02-05 08:07 | ED_ITS ---
HPI - General Adult General Chief complaint: Dyspnea Stated complaint: difficulty breathing Time Seen by Provider: 02/05/22 08:07 Source: patient Mode of arrival: ambulatory Limitations: no limitations History of Present Illness HPI narrative: 36-year-old came in for evaluation of shortness of breath and sore throat. Patient started with sore throat 3 days ago and change of her blindness, otherwise patient felt fine, until this morning patient woke up with coughing and chest pain with coughing, no sputum production with coughing. No fever, no chills, no sick contacts, no recent travel, no lower extremities swelling or tenderness, no history of PE or DVT. Related Data Home Medications Medication Instructions Recorded Confirmed pantoprazole 20 mg tablet,delayed 20 mg PO DAILY PRN 01/01/22 01/10/22 release Previous Rx's Medication Instructions Recorded amitriptyline 75 mg tablet 75 mg PO BEDTIME 30 Days #30 tab 01/10/22 albuterol sulfate 90 mcg/actuation 1 inh INHALATION QID PRN #8.5 g 02/05/22 aerosol inhaler Allergies Allergy/AdvReac Type Severity Reaction Status Date / Time No Known Allergies Allergy Verified 01/10/22 15:20 [No Known Allergies*] Review of Systems Review of Systems: All other systems are reviewed and are negative Constitutional: Reports as per HPI and Reports no additional constitutional complaints Eyes: Reports as per HPI and Reports no additional eye complaints Reports system reviewed and no additional complaints, except as documented Cardiovascular: Reports as per HPI and Reports no additional cardiovascular complaints Respiratory: Reports as per HPI and Reports no additional respiratory complaints Gastrointestinal: Reports as per HPI and Reports no additional gastrointestinal complaints Genitourinary: Reports no additional female genitourinary complaints Musculoskeletal: Reports no additional musculoskeletal complaints Skin/Breast: Reports system reviewed and no additional complaints, except as docu Psychiatric: Reports no additional psychiatric complaints Endocrine: Reports no additional endocrine complaints Hematologic/Lymphatic: Reports no additional hematologic/lymphatic complaints Allergic/Immunologic: Reports no additional allergic/immunologic complaints Reports system reviewed and no additional complaints, except as documented and Reports Abnormal speech present [facility] Past Medical History Medical History Esophagitis Surgical History Gastric bypass status for obesity Family History Family History Mother Hypertension Social History Social History Household Members: Spouse and Children Housing: Apartment Do you presently have visiting nurse or other home services: No Alcohol intake: current Alcohol intake frequency: does not drink Patient Tobacco Use Status: Never used Tobacco e-Cigarette/Vaping Use: Never Used Second Hand Smoke Exposure: No Use of substances other than those prescribed or required for medical reasons: No Advance Directives: No Advance Directives Information Provided: Yes Patient : No service: No Current occupational status: employed Current occupational exposures/hazards: No Cognitive needs: No Hearing needs: No Vision needs: No Physical Exam ED Vital Signs: Vital Signs - 24 hr 02/05/22 07:30 02/05/22 07:45 Temperature 98.9 F 98.9 F Pulse Rate 91 95 Respiratory Rate 20 18 Blood Pressure 117/72 117/72 Pulse Oximetry 100 100 BMI result Body Mass Index 32.5 Vital signs have been reviewed as appeared to be correct. Blood pressure normal. Heart rate normal. Respiration rate normal. Temperature normal. Oxygen saturation normal. Appearance: Alert. Oriented X3. No acute distress. Head: Normal external exam. Normocephalic. Atraumatic. No Couch signs noted. No raccoon eyes noted Eyes: PERRLA. EOMI. Conjunctiva and sclera normal. Eyelids normal. ENT: TM's Normal. Pharynx normal. Uvula midline. Moist mucous membranes. No trismus noted. No drooling noted. No muffled voice noted. Neck: Normal inspection. Neck supple. FROM. No adenopathy. Thyroid Normal. No meningeal signs. No neck mass noted. CVS: Normal heart rate and rhythm. Heart sound normal. No murmurs noted. Pulses normal throughout. Respiratory: No respiratory distress. Painless inspiration. Breath sounds normal. No wheezes/rales/rhonchi noted. Chest nontender. No accessory muscle usage noted or decreased air movement noted. Abdomen: Soft and nontender. Bowel sounds normal in all 4 quadrants. No distention noted. No organomegaly noted. No visible injury noted. Back: No CVA tenderness. Full range of motion noted. Skin: Skin warm and dry. Normal skin color. Normal skin turgor. No rashes/ lesions/lacerations noted. Extremities: No lower extremity edema. Extremities exhibit normal range of motion. Extremities nontender. Neuro: Oriented X 3. Cranial nerve exam: II-XII are grossly intact No motor deficit. No sensory deficit. Reflexes normal. Course Course Course Narrative: Assessment and plan. 36-year-old female came in with upper respiratory symptoms, patient with COVID positive. Mild a viral bronchitis will discharge on bronchodilator. Patient was instructed to frequent hand washing/social distancing/self- isolation/face mask at all times. Medical Decision Making Lab Data Lab results reviewed: Yes I reviewed the patient's lab results. Labs: Lab Results 02/05/22 02/05/22 Range/Units 08:07 08:11 Influenza Type A (PCR) NEGATIVE (Negative) Influenza Type B (PCR) NEGATIVE (Negative) RSV RNA Qual (PCR) NEGATIVE (Negative) SARS-CoV-2 RNA (RT-PCR) POSITIVE A (Negative) S. pyogenes GrpA CONNIE Negative (Negative) Imaging Data Chest x-ray: Attestation: I personally reviewed and interpreted this imaging study as follows: Radiologist's impression: No acute pathology. Discharge Plan Discharge Clinical Impression: COVID-19 virus infection, Acute bronchitis, viral Patient Disposition: Home, Self-Care Instructions: Covid-19 Viral Syndrome and Novel Coronavirus (ED) Hey/Ath, Acute Bronchitis (ED) Additional Instructions: 1. Frequent hand washing. 2. Keep social distancing. 3. Face mask at all times. 4. Self-quarantine/isolation. Prescriptions: New albuterol sulfate 90 mcg/actuation HFA aerosol inhaler 1 inh inhalation QID PRN (Reason: shortness of breath or wheezing) Qty: 8.5 0RF No Action pantoprazole 20 mg tablet,delayed release (DR/EC) 20 mg PO DAILY PRN (Reason: Dyspepsia) 0RF amitriptyline 75 mg tablet 75 mg PO BEDTIME 30 Days Qty: 30 2RF Rx Instructions: Dr. Nelson Referrals: Po,Parker Melgar MD [Primary Care Provider] -
[2022-02-05 08:32] LABS: IDNOW Serial# 08D9AD1C; Strep A Nucleic Acid Negative (Negative)
[2022-02-05 08:54] LABS: Influenza A PCR NEGATIVE (Negative); Influenza B PCR NEGATIVE (Negative); Resp Syncy Virus RNA Qual PCR NEGATIVE (Negative); SARS COV2 PCR INHOUSE POSITIVE (Negative)
== END 2022-02-05 09:54 | disposition home or self-care (01) ==
PROVIDERS: Emergency Provider Emergency Medicine; PCP Internal Medicine
DX: U07.1 COVID-19 (principal); J20.8 Acute bronchitis due to other specified organisms; R06.02 Shortness of breath; J02.9 Acute pharyngitis, unspecified
CPT/HCPCS: 0241U; 36415; 71045; 87651; 93005; 99283; 99284

== ENCOUNTER 2023-03-13 14:43 | Outpatient (AMB) | payer OTHER, SELFPAY ==
--- NOTE | 2023-03-13 14:56 | MHC.OFFVIS ---
Intake Vital Signs 03/13/23 15:02 Height 5 ft 6 in Weight 205 lb BMI 33.1 BP 134/76 Intake Visit Reasons: irregular bleeding Computational Physicist Required: No Information Interpreted: non-clinical & clinical Aircraft Motor Mechanic: Aircraft Motor Mechanic Present (Rozina) Allergies No Known Allergies [No Known Allergies*] Allergy (Verified 03/13/23 15:04) Is last menstrual period known: Yes Last menstrual period: 03/08/23 Post menopausal: No HPI HPI Comments History of Present Illness Details The patient is presenting c/o irregular bleeding associated with passage of blood clots and abdominal cramping. it started few months ago and is getting worse no other associated symptoms. Last co testing PFSH Medical History Esophagitis Surgical History Gastric bypass status for obesity Family History Mother Hypertension Social History (Updated 07/01/22 @ 12:33 by Parker Chaudhry MD) Household Members: Spouse and Children Housing: Apartment Do you presently have visiting nurse or other home services: No Alcohol intake: current Alcohol intake frequency: does not drink Patient Tobacco Use Status: Never used Tobacco e-Cigarette/Vaping Use: Never Used Second Hand Smoke Exposure: No service: No Current occupational status: employed Current occupational exposures/hazards: No Cognitive needs: No Hearing needs: No Vision needs: No Female Reproductive History Menstrual Age of Menarche: 9 Duration of menses: 3-5 days Date of last menstrual period: 03/08/23 control method: permanent sterilization Permanent Sterilization: Essure Total pregnancies: 2 Full term: 2 Number of Living Children: 2 Date of last pap smear: 06/30/18 (ASCUS) History of abnormal pap smear: Yes Review of Systems Const All systems reviewed & are unremarkable except as noted in HPI and below Card Reports as per HPI Resp Reports as per HPI GI Reports as per HPI and Reports no additional complaints Reports as per HPI Physical Exam Const General: cooperative, healthy appearing and comfortable Chest Chest palpation & inspection: normal inspection of the chest and normal palpation of entire chest wall Breast/axilla inspection: normal inspection of the breasts and normal inspection of the axillae Breast/axilla palpation: normal palpation of the breasts, normal palpation of the axillae and no axillary lymphadenopathy Resp Effort & Inspection: normal respiratory effort Auscultation: clear to auscultation bilaterally Percussion: percussion normal Cardio Palpation: normal PMI Rate: regular rate Rhythm: regular rhythm Heart sounds: no murmurs and no rubs Peripheral pulses: Peripheral pulses 2+ throughout GI Inspection: Yes normal to inspection Palpation (GI): Soft to palpation, nontender, no guarding, not rigid and No hepatosplenomegaly present Percussion: Yes normal to percussion Auscultation: normal bowel sounds Rectal Exam - Female: deferred General: Yes bladder normal to palpation External Female Exam: No lesion Speculum Exam - Vagina: normal appearance of the vagina, normal palpation, normal vaginal discharge and not erythematous Speculum Exam - Cervix: normal appearance of the cervix and normal palpation Bimanual exam- vagina & uterus: normal bimanual exam, normal palpation, uterine size normal, bladder normal to palpation, consistency normal and normal palpation Bimanual Exam- Adnexa, other: normal adnexae, no masses and no tenderness Assessment & Plan Assessment & Plan (1) Abnormal uterine bleeding (AUB): Code(s): N93.9 - Abnormal uterine and vaginal bleeding, unspecified Plan: Co testing done, GC and chlamydia taken CBC, TSH, HCG, screening mammogram and pelvic ultrasound ordered. Discussed with the patient the different causes of abnormal bleeding including thyroid disorders, uterine and ovarian pathology, endometrial hyperplasia, carcinoma and other potential causes. Discussed with the patient the work up including CBC (to r/o anemia), TSH, pelvic Ultrasound, endometrial biopsy to r/o endometrial pathology. All questions answered and the patient verbalized understanding. Instructed the patient to schedule an appointment for an endometrial biopsy in 2 weeks. Orders: Orders HCG Quantitative Today N93.9 - Abnormal uterine and vaginal bleeding, unspecified Prolactin Today N93.9 - Abnormal uterine and vaginal bleeding, unspecified TSH reflex Free T4 Today N93.9 - Abnormal uterine and vaginal bleeding, unspecified Complete Blood Count no Diff Today N93.9 - Abnormal uterine and vaginal bleeding, unspecified MM screening mammo BI 4 Months Z12.31 - Encounter for screening mammogram for malignant neoplasm of breast US pelvic and transvaginal Today N93.9 - Abnormal uterine and vaginal bleeding, unspecified Coding Level of Care Code New Pt Level 3 (10902) Diagnoses Abnormal uterine bleeding (AUB) N93.9
[2023-03-13 15:02] VITALS: BP 134/76; BMI 33.1
== END 2023-03-13 15:17 | disposition home or self-care (01) ==
LOC: HO.HWS 14:43
PROVIDERS: PCP Internal Medicine; Visit Provider Obstetrics & Gynecology
DX: Z32.02 Encounter for pregnancy test, result negative (principal); N93.9 Abnormal uterine and vaginal bleeding, unspecified
CPT/HCPCS: 99203

== ENCOUNTER 2023-03-13 14:43 | Outpatient (REF) | payer OTHER, SELFPAY ==
[2023-03-21 03:19] LABS: HPV mRNA E6/E7 rflx Not Detected (Not Detected)
== END 2023-03-13 14:44 | disposition home or self-care (01) ==
LOC: HO.LNP 14:43
PROVIDERS: PCP Internal Medicine; Visit Provider Obstetrics & Gynecology
DX: Z12.4 Encounter for screening for malignant neoplasm of cervix (principal); Z11.51 Encounter for screening for human papillomavirus (HPV); N93.9 Abnormal uterine and vaginal bleeding, unspecified
CPT/HCPCS: 81025; 87624; 88142; 99202

== ENCOUNTER 2023-03-13 15:20 | Outpatient (REF) | payer OTHER, SELFPAY ==
[2023-03-13 15:40] LABS: Hematocrit 34.8 % (37.0-47.0); Hemoglobin 10.9 g/dl (12.0-16.0); Mean Corpuscular HGB Conc 31.3 g/dl (31.0-35.0); Mean Corpuscular Volume 86.4 fL (80.0-98.0); Mean Platelet Volume 10.1 fL (9.4-12.3); Platelet Count 244 X10*3/uL (160-400); Red Blood Count 4.03 X10*6/uL (4.20-5.50); Red Cell Distribution Width 13.1 % (11.0-16.0); White Blood Count 4.9 X10*3/uL (4.8-10.8)
[2023-03-13 19:50] LABS: HCG Quantitative < 2 mIU/mL
[2023-03-13 19:57] LABS: TSH reflex Free T4 2.56 uIU/mL (0.32-4.0)
[2023-03-14 12:16] LABS: CT PCR NOT DETECTED (Not Detect.); NG PCR NOT DETECTED (Not Detect.)
[2023-03-16 00:13] LABS: Prolactin 9.3 ng/mL
== END 2023-03-13 15:21 | disposition home or self-care (01) ==
LOC: HO.LAB 15:20
PROVIDERS: PCP Internal Medicine; Visit Provider Obstetrics & Gynecology
DX: N93.9 Abnormal uterine and vaginal bleeding, unspecified (principal)
CPT/HCPCS: 0353U; 36415; 84146; 84443; 84702; 85027

== ENCOUNTER 2023-03-19 13:50 | Outpatient (REF) | payer OTHER, SELFPAY ==
--- NOTE | ~2023-03-19 | US_ITS ---
EXAMINATION: US PELVIS CLINICAL INFORMATION: Abnormal uterine and vaginal bleeding, unspecified LMP: One week ago COMPARISON: CT abdomen and pelvis 03/06/2021, pelvic ultrasound 07/14/2018 TECHNIQUE: Ultrasound of the pelvis is performed using both transabdominal and transvaginal transducers along with Doppler. Transvaginal imaging is performed due to inadequate visualization transabdominally. FINDINGS: Uterus: The uterus is anteverted and measures 9.5 x 4.2 x 5.8 cm. No focal fibroid. The endometrial thickness is 1.0 mm. This is normal thickness for a menstruating woman. Endometrial stripe is slightly heterogeneous with slight vascularity. Adnexa: Both ovaries are visualized. There is normal color flow to the adnexa. There is no ovarian torsion. There is no pelvic ascites or fluid collection. Right ovary measures 2.7 x 2.0 x 2.6 cm. Volume 7.2 mL. Left ovary measures 3.2 x 1.6 x 2.3 cm. Volume 6.1 mL. US/US pelvic and transvaginal IMPRESSION: 1. Normal size uterus without a focal fibroid. 2. The endometrial stripe is slightly heterogeneous with slight vascularity. This of uncertain clinical significance. 3. Normal ovaries.
== END 2023-03-19 13:51 | disposition home or self-care (01) ==
LOC: HO.US 13:50
PROVIDERS: PCP Internal Medicine; Visit Provider Obstetrics & Gynecology
DX: N93.9 Abnormal uterine and vaginal bleeding, unspecified (principal)
CPT/HCPCS: 76830; 76856

== ENCOUNTER 2024-02-04 09:40 | Outpatient (AMB) | payer OTHER, SELFPAY ==
[2024-02-04 09:51] VITALS: BP 120/70; BMI 32.7
--- NOTE | 2024-02-04 09:51 | A.OFFVIS_ITS ---
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[employer] [place] Present (Rozina Palomares TEDChelly) Accompanied by: Spouse Allergies No Known Allergies [No Known Allergies*] Allergy (Verified 02/04/24 10:12) Is last menstrual period known: Yes Last menstrual period: 01/05/24 HPI Comments Details: Presenting for EMB, last co testing done in 03/23 showed scant cellularity of Pap smear HPV negative PFSH Medical History Esophagitis Surgical History Gastric bypass status for obesity Family History Mother Hypertension Social History Household Members: Spouse and Children Housing: Apartment Do you presently have visiting nurse or other home services: No Alcohol intake: current Alcohol intake frequency: does not drink Patient Tobacco Use Status: Never used Tobacco e-Cigarette/Vaping Use: Never Used Second Hand Smoke Exposure: No service: No Current occupational status: employed Current occupational exposures/hazards: No Cognitive needs: No Hearing needs: No Vision needs: No Female Reproductive History Menstrual Age of Menarche: 9 Date of last menstrual period: 01/05/24 Physical Exam Vital Signs: Last Vital Signs BP 120/70 02/04/24 09:51 BMI result Body Mass Index 32.7 Office Procedures Endometrial Biopsy Details: The patient was counseled regarding the indication and benefits of endometrial sampling to rule out endometrial pathology including not limited to endometrial hyperplasia or endometrial cancer and others; The alternatives (Either do nothing vs. hysteroscopy D&C) & the risks were discussed with the patient including but not limited: pain, uterine perforation, bleeding, infection, possible injury to bladder, bowel, ureter, possible need for blood transfusion with all its possible risks. The patient verbalized understanding all questions answered and signed consent. Urine test done in the office was negative The patient was placed into the dorsal lithotomy position; a speculum was inserted in the vagina. Using aseptic technique for the procedure, the cervix was cleansed with Betadine. The anterior lip of the cervix was grasped with a single tooth tenaculum. The uterus was sounded to 7 cm with a 4 mm Pipelle was used. Tissues samples were obtained and placed in formalin, in a patient labeled container and sent to the pathology department. At the end of the procedure, there was minimal bleeding noted The patient tolerated the procedure well and was discharged in good condition with the following instructions: Nothing in the vagina until the bleeding stops. No sex until the bleeding stops, to call if any of the following occurs: fever (>100.4), flu-like symptoms, abdominal pain, heavy bleeding, four smelling vaginal discharge. The patient was instructed to schedule a Follow up appointment in 2 weeks to discuss pathology results of the biopsy and treatment options. This note was generated with a voice recognition program. Some errors may have been overlooked during the review of this note. Sometimes these errors may affect the content or meaning of a given sentence. 98169-Pynmrziotly Biopsy Assessment & Plan Assessment & Plan (1) Unsatisfactory cervical Papanicolaou smear: Comment: Due to scant cellularity and blood /HPV negative in 03/23 Code(s): R87.615 - Unsatisfactory cytologic smear of cervix Category: Medical Plan: Co testing done (2) Abnormal uterine bleeding (AUB): Code(s): N93.9 - Abnormal uterine and vaginal bleeding, unspecified Category: Medical Plan: EMB done, see procedure note Orders: Orders AMB Endometrial Biopsy Today N93.9 - Abnormal uterine and vaginal bleeding, unspecified Coding Level of Care Code Est Pt Level 3 (90641) Procedure Only Diagnoses Unsatisfactory cervical Papanicolaou smear R87.615 Abnormal uterine bleeding (AUB) N93.9 CPT Codes Endometrial Biopsy - CPT: 62683-Lmpwiurderc Biopsy ([id number])
== END 2024-02-04 10:25 | disposition home or self-care (01) ==
LOC: HO.HWS 09:40
PROVIDERS: PCP Internal Medicine; Visit Provider Obstetrics & Gynecology
DX: N93.9 Abnormal uterine and vaginal bleeding, unspecified (principal); R87.615 Unsatisfactory cytologic smear of cervix; Z32.02 Encounter for pregnancy test, result negative
CPT/HCPCS: 58100

== ENCOUNTER 2024-02-04 09:40 | Outpatient (REF) | payer OTHER, SELFPAY ==
[2024-02-13 04:44] LABS: HPV mRNA E6/E7 rflx Not Detected (Not Detected)
== END 2024-02-04 09:41 | disposition home or self-care (01) ==
LOC: HO.LNP 09:40
PROVIDERS: PCP Internal Medicine; Visit Provider Obstetrics & Gynecology
DX: R87.615 Unsatisfactory cytologic smear of cervix (principal); N93.9 Abnormal uterine and vaginal bleeding, unspecified; Z12.4 Encounter for screening for malignant neoplasm of cervix
CPT/HCPCS: 58100; 81025; 87624; 88142; 88305

== ENCOUNTER 2024-03-02 07:53 | Outpatient (AMB) | payer OTHER, SELFPAY ==
--- NOTE | 2024-03-02 07:55 | MHC.OFFVIS ---
Vital Signs 03/02/24 08:01 Height 5 ft 6 in Weight 202 lb 13.204 oz BMI 32.7 BP 128/86 Intake Visit Reasons: EMB follow up Crisis Counselor Required: No Information Interpreted: non-clinical & clinical Accompanied by: Self / Same As Patient Allergies No Known Allergies [No Known Allergies*] Allergy (Verified 03/02/24 08:02) Is last menstrual period known: Yes Last menstrual period: 03/02/24 HPI Comments Details: The patient is presenting for follow-up to discuss the results of her abnormal uterine bleeding workup and options of treatment. The following workup was done.: H&H= 10.9/34.8 TSH, prolactin, hCG, GC and chlamydia were negative. Endometrial biopsy pathology showed the following: Secretory endometrium; no atypia or hyperplasia identified Co testing was done was negative. Mammogram ordered but not scheduled yet Pelvic ultrasound showed the following: Uterus: The uterus is anteverted and measures 9.5 x 4.2 x 5.8 cm. No focal fibroid. The endometrial thickness is 1.0 mm. This is normal thickness for a menstruating woman. Endometrial stripe is slightly heterogeneous with slight vascularity. Adnexa: Both ovaries are visualized. There is normal color flow to the adnexa. There is no ovarian torsion. There is no pelvic ascites or fluid collection. Right ovary measures 2.7 x 2.0 x 2.6 cm. Volume 7.2 mL. Left ovary measures 3.2 x 1.6 x 2.3 cm. Volume 6.1 mL. [facility] Medical History (Updated 03/02/24 @ 08:11 by Moe Hanna MD) Encounter for Essure implantation Esophagitis Surgical History Gastric bypass status for obesity Family History Mother Hypertension Social History Household Members: Spouse and Children Housing: Apartment Do you presently have visiting nurse or other home services: No Alcohol intake: current Alcohol intake frequency: does not drink Patient Tobacco Use Status: Never used Tobacco e-Cigarette/Vaping Use: Never Used Second Hand Smoke Exposure: No service: No Current occupational status: employed Current occupational exposures/hazards: No Cognitive needs: No Hearing needs: No Vision needs: No Female Reproductive History Menstrual Age of Menarche: 9 Date of last menstrual period: 03/02/24 Review of Systems Const All systems reviewed & are unremarkable except as noted in HPI and below Reports as per HPI and Reports no additional complaints GI Reports no additional complaints Reports no additional complaints Physical Exam Vital Signs: Last Vital Signs BP 128/86 03/02/24 08:01 BMI result Body Mass Index 32.7 Assessment & Plan Assessment & Plan (1) Abnormal uterine bleeding (AUB): Comment: h/o Essure Code(s): N93.9 - Abnormal uterine and vaginal bleeding, unspecified Category: Medical Plan: Instructed the patient to schedule mammogram, order in place. Discussed with the patient the results of the work up done and options of treatment including progestin treatment BCP's, (Mirena IUD and endometrial ablation are contraindicated in patients with Essure) and hysterectomy. All pros, cons, risks and benefits if each option was discussed with the patient and the patient decided to think about it and get back to us. All questions answered the patient verbalized understanding. Coding Level of Care Code Est Pt Level 3 (04230) Diagnoses Abnormal uterine bleeding (AUB) N93.9
[2024-03-02 08:01] VITALS: BP 128/86; BMI 32.7
== END 2024-03-02 08:15 | disposition home or self-care (01) ==
PROVIDERS: PCP Internal Medicine; Visit Provider Obstetrics & Gynecology
DX: N93.9 Abnormal uterine and vaginal bleeding, unspecified (principal)
CPT/HCPCS: 99213

== ENCOUNTER → 2024-03-02 07:53 | Outpatient (BNVA) | payer OTHER, SELFPAY | PROVIDERS: PCP Internal Medicine; Visit Provider Obstetrics & Gynecology | DX: N93.9 Abnormal uterine and vaginal bleeding, unspecified (principal) | CPT/HCPCS: 99212 ==

== ENCOUNTER 2024-03-12 13:07 | Outpatient (REF) | payer OTHER, SELFPAY ==
--- NOTE | ~2024-03-12 | MM_ITS ---
EXAMINATION: MM SCREENING DIGITAL BREAST TOMOSYNTHESIS, BILATERAL CLINICAL INFORMATION: Screening. Asymptomatic. COMPARISON: Mammography: This is a baseline mammogram. TECHNIQUE: Digital breast tomosynthesis is performed in both the craniocaudal and mediolateral oblique views along with computer-aided detection (CAD). Synthesized 2D images are generated from the tomosynthesis. FINDINGS: There are scattered areas of fibroglandular density (ACR BI-RADS breast composition Category b). There are no significant masses, abnormal calcifications, or other abnormalities. MM/MM tomosynthesis screening BI IMPRESSION: No mammographic evidence of malignancy. ASSESSMENT: BI-RADS BI-RADS 1 - Negative RECOMMENDATION: Routine annual mammography screening. 1 year F/U This examination should not preclude the clinical evaluation of a suspicious palpable abnormality. This patient's information was entered into a reminder system with a target due date for their next mammogram.
== END 2024-03-12 13:08 | disposition home or self-care (01) ==
LOC: HO.MAMMO 13:07
PROVIDERS: PCP Internal Medicine; Visit Provider Internal Medicine
DX: Z12.31 Encounter for screening mammogram for malignant neoplasm of breast (principal)
CPT/HCPCS: 77063; 77067

== ENCOUNTER → 2024-03-12 13:15 | Outpatient (BNV) | payer OTHER, SELFPAY | PROVIDERS: PCP Internal Medicine; Visit Provider Radiology Diagnostic Radiology | DX: Z12.31 Encounter for screening mammogram for malignant neoplasm of breast (principal) | CPT/HCPCS: 77063; 77067 ==

== ENCOUNTER 2024-05-06 11:16 | Outpatient (AMB) | payer OTHER, SELFPAY ==
[2024-05-06 11:52] VITALS: BP 124/68; PULSE 89; O2SAT 99; BMI 32.0
--- NOTE | 2024-05-06 11:52 | MHC.PC.OV ---
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: No Accompanied by: Self / Same As Patient Allergies No Known Allergies [No Known Allergies*] Allergy (Verified 05/06/24 11:52) Medication List - Last Reconciled 05/06/24 by Parker Chaudhry MD amitriptyline 75 mg PO BEDTIME 30 days Tobacco use date assessed: 05/06/24 Dental Screening Dental Screen Date: 05/06/24 Did you have a dental visit in the last 12 months?: No Did you have a dental problem in the last 6 months where you did not have access to dental care?: No Was dental information given to patient?: Patient declined HPI ANNUAL PE HPI Details 1-year-old obese female with a history of gastric bypass impaired glucose tolerance GERD iron deficiency anemia generalized anxiety disorder coming in for physical exam. Last seen in 2021. PAtient corby has had passing out episode when having pelvic pain . states Q month with menorrhagia and seeing Gynecology for this. . has constipation. [facility] Medical History (Updated 05/06/24 @ 12:30 by Parker Chaudhry MD) Vision changes Left shoulder pain Encounter for Essure implantation Esophagitis Surgical History Gastric bypass status for obesity Family History Mother Hypertension Social History (Updated 05/06/24 @ 12:27 by Parker Chaudhry MD) Household Members: Spouse and Children Housing: Apartment Do you presently have visiting nurse or other home services: No Alcohol intake: current Alcohol intake frequency: does not drink Comment: once a week 3-4 drinks Patient Tobacco Use Status: Never used Tobacco Tobacco use type: Cigarette e-Cigarette/Vaping Use: Never Used Second Hand Smoke Exposure: No service: No Current occupational status: employed Current occupational exposures/hazards: No Cognitive needs: No Hearing needs: No Vision needs: No Female Reproductive History Menstrual Age of Menarche: 9 Questionnaire PHQ-9 Over the last 2 weeks, how often have you been bothered by any of the following problems? 1. Little interest or pleasure in doing things: several days 2. Feeling down, depressed, or hopeless: more than half the days 3. Trouble falling or staying asleep, or sleeping too much: nearly every day 4. Feeling tired or having little energy: several days 5. Poor appetite or overeating: several days 6. Feeling bad about yourself - or that you are a failure or have let yourself or your family down: several days 7. Trouble concentrating on things, such as reading the newspaper or watching television: not at all 8. Moving or speaking so slowly that other people could have noticed. Or the opposite - being so fidgety or restless that you have been moving around a lot more than usual: not at all 9. Thoughts that you would be better off or of hurting yourself in some way: not at all Total score: 9 Source: Developed by Drs. Abner Richard, Soni Mark, Man Tejeda and colleagues, with an educational raul from [employer]. Thrive Questionnaire Date Thrive assessed: 05/06/24 I am a: Patient What is your living situation today?: I have a place to live, but I am worried about losing it in the future Within the past 12 months, did the food you bought not last and you didn't have the money to get more?: Sometimes True Within the past 12 months, did you worry whether your food would run out before you got money to buy more?: Sometimes True Do you have trouble paying for medicines?: Yes Do you have trouble getting transportation to medical appointments?: No Do you have trouble paying your heating and electricity bill?: Yes Do you have trouble taking care of your child, family member or friend?: No Do you have trouble with day-to-day activities such as bathing, preparing meals, shopping, managing finances, etc.?: No Are you currently unemployed and looking for a job?: No Are you interested in more education?: No Please select the resources that you would like help with: Food and Utilities Currently or been in a relationship where the following occur: I choose not to answer THRIVE Score: 4 AUDIT C Alcohol Use Questionnaire (AUDIT-C) 1. How often do you have a drink containing alcohol?: Monthly or less 2. How many drinks containing alcohol do you have on a typical day when you are drinking?: 1 or 2 3. How often do you have six or more drinks on one occasion?: Never Total Score: 1 ISAI-7 AMB Questionnaire ISAI-7 Date ISAI - 7 assessed: 05/06/24 Feeling nervous, anxious, or on edge: 0 = Not at all Not being able to stop or control worryin = Several days Worrying too much about different things: 1 = Several days Trouble relaxin = Several days Being so restless that it is hard to sit still: 0 = Not at all Becoming easily annoyed or irritable: 1 = Several days Feeling afraid as if something awful might happen: 1 = Several days Total ISAI-7 score (0-4 normal; 5-9 mild; 10-14 moderate; 15-21 severe): 5 Source: Developed by Drs. Abner Richard, Soni Mark, Man Tejeda and colleagues, with an educational raul from [employer]. Review of Systems Const Denies poor appetite and Denies weakness Eyes Denies no additional complaints ENT Reports Normal hearing present, Denies dizziness, Denies nasal congestion, Denies tinnitus and Denies sore throat Card Denies chest pain, Denies syncope, Denies rapid heart rate and Denies dyspnea Resp Denies cough and Denies dyspnea GI Denies change in stool character, Reports constipation, Denies diarrhea, Denies nausea and Denies vomiting Denies urinary frequency, Denies difficulty voiding and Denies dysuria Neuro Reports Normal hearing present, Denies confusion, Denies dizziness, Denies syncope and Denies weakness Psych Denies confusion Physical exam (Primary Care) Vital Signs: Last Vital Signs Pulse 89 05/06/24 11:52 BP 124/68 05/06/24 11:52 Pulse Ox 99 05/06/24 11:52 Oxygen Delivery Method Room Air 05/06/24 11:52 BMI result Body Mass Index 32.0 Tobacco/Smoking Status: Tobacco use Status Tobacco use date assessed 05/06/24 05/06/24 11:53 Patient Tobacco Use Status Never used Tobacco 05/06/24 11:53 Tobacco use type Cigarette 05/06/24 11:53 e-Cigarette/Vaping Use Never Used 05/06/24 11:53 PHQ-9: PHQ-9 Score PHQ-9: Total score 9 05/06/24 11:53 Thrive Assessment: Date of Thrive Assessment Date Thrive assessed 05/06/24 05/06/24 11:53 Currently or been in a relationship where the following occur: I choose not to answer Const General: No confusion Orientation/consciousness: No confusion HENMT Head: Yes normocephalic Ears: external ears normal and TM's normal bilaterally Face and sinus: Yes normal facial exam Mouth: moist mucous membranes Throat: Yes tonsils normal Eyes Conjunctivae: conjunctivae normal Pupils: Equal, round and reactive pupils present and Pupil accommodation reflex normal Direct Ophthalmoscopy: normal light reflex Neck Neck: No lymphadenopathy Thyroid: Thyroid normal Chest Chest palpation & inspection: normal inspection of the chest Resp Effort & Inspection: normal respiratory effort and no audible wheezes Auscultation: clear to auscultation bilaterally, no crackles, no wheezes and lung sounds not diminished Cardio Rate: regular rate Rhythm: regular rhythm Peripheral pulses: radial pulses present and dorsalis pedis present GI Palpation (GI): no masses Auscultation: normal bowel sounds and normoactive bowel sounds Rectal Exam - Female: deferred Skin General skin exam: no rashes or lesions noted Rashes: no rashes Neuro General: No confusion Cranial nerves: Yes Equal, round and reactive pupils present and Yes Normal hearing present Cognition (Neuro): normal cognition Gait exam (Neuro): Normal gait present Motor exam (neuro): 5/5 motor strength present throughout Deep tendon reflexes (DTR's): Right brachioradialis reflex intensity grade: 2+, Left brachioradialis reflex intensity grade: 2+, Right patellar reflex intensity grade: 2+ and Left patellar reflex intensity grade: 2+ Extrem General: No edema Assessment and Plan Assessment & Plan (1) Annual physical exam: Code(s): Z00.00 - Encounter for general adult medical examination without abnormal findings Plan: Patient is advised to eat healthy, keep well hydrated, keep active and have adequate sleep. (2) History of gastric bypass: Comment: 2011 [facility] Code(s): Z98.84 - Bariatric surgery status Plan: Continue with diet and exercise (3) Obesity (BMI 30.0-34.9): Code(s): E66.9 - Obesity, unspecified Plan: Diet and exercise (4) Generalized anxiety disorder: Code(s): F41.1 - Generalized anxiety disorder Plan: Continue with present medication (5) GERD (gastroesophageal reflux disease): Code(s): K21.9 - Gastro-esophageal reflux disease without esophagitis Plan: Avoid the foods that causes that usually spicy foods, tomato products, juices, coffee, soda and foods that your sensitive to. After eating do not lie down, allow 3-4 hours before in lie down. And keep the head of bed above 30 degrees to avoid the acid from going up. (6) Iron deficiency anemia: Code(s): D50.9 - Iron deficiency anemia, unspecified Plan: Advised to have a follow-up blood work (7) Impaired glucose tolerance: Code(s): R73.02 - Impaired glucose tolerance (oral) Plan: Advised to have a follow-up blood work. Decrease the amount of carbohydrate intake, pasta, bread, rice and potatoes are all sugar and that is aside from all the sweet stuff, remember that fruits are good but they are Sweet also. (8) Constipation: Code(s): K59.00 - Constipation, unspecified Plan: Three rules for constipation 1. Diet need to have a high fiber diet less of meat 2. Increase oral fluids 3. Exercise (9) Abnormal uterine bleeding (AUB): Comment: h/o Essure Code(s): N93.9 - Abnormal uterine and vaginal bleeding, unspecified Plan: patient follow up with gynecology Orders: Orders Comprehensive Met. Panel Today D50.9 - Iron deficiency anemia, unspecified Hemoglobin A1c Today D50.9 - Iron deficiency anemia, unspecified UA CC w/rflx Micro + Cult Today D50.9 - Iron deficiency anemia, unspecified, R30.0 - Dysuria Vitamin A Today Z98.84 - Bariatric surgery status Vitamin B1 Today Z98.84 - Bariatric surgery status Complete Blood Count Auto Diff Today D50.9 - Iron deficiency anemia, unspecified Ferritin Today D50.9 - Iron deficiency anemia, unspecified IRON PROFILE Today D50.9 - Iron deficiency anemia, unspecified Reticulocyte Count Today D50.9 - Iron deficiency anemia, unspecified Vitamin B12 and Folate Today D50.9 - Iron deficiency anemia, unspecified Vitamin D 25-OH Total Today D50.9 - Iron deficiency anemia, unspecified Free T4 (Free Thyroxine) Today D50.9 - Iron deficiency anemia, unspecified Thyroid Stimulating Hormone Today D50.9 - Iron deficiency anemia, unspecified Lipid Panel Today D50.9 - Iron deficiency anemia, unspecified, E78.00 - Pure hypercholesterolemia, unspecified Medications: New sennosides-docusate sodium 8.6-50 mg (Senna Plus) 2 tab-caps (2 x 8.6-50 mg) PO BEDTIME PRN 30 caps 12RF constipation K59.00 - Constipation, unspecified Changed From amitriptyline [place] 75 mg PO BEDTIME 30 days 90 tabs 1RF F41.1 - Generalized anxiety disorder To amitriptyline [place] 100 mg PO BEDTIME 30 days 30 tabs 1RF F41.1 - Generalized anxiety disorder Coding Level of Care Code Est Pt Prev Care 40-64y(60219) Diagnoses Annual physical exam Z00.00 History of gastric bypass Z98.84 Obesity (BMI 30.0-34.9) E66.9 Generalized anxiety disorder F41.1 GERD (gastroesophageal reflux disease) K21.9 Iron deficiency anemia D50.9 Impaired glucose tolerance R73.02 Constipation K59.00 Abnormal uterine bleeding (AUB) N93.9
== END 2024-05-06 12:40 | disposition home or self-care (01) ==
PROVIDERS: PCP Internal Medicine; Visit Provider Internal Medicine
DX: Z00.00 Encounter for general adult medical examination without abnormal findings (principal); E66.9 Obesity, unspecified; Z68.32 Body mass index [BMI] 32.0-32.9, adult; Z98.84 Bariatric surgery status; F41.1 Generalized anxiety disorder; K21.9 Gastro-esophageal reflux disease without esophagitis; D50.9 Iron deficiency anemia, unspecified; R73.02 Impaired glucose tolerance (oral); K59.00 Constipation, unspecified; N93.9 Abnormal uterine and vaginal bleeding, unspecified
CPT/HCPCS: 99396

== ENCOUNTER 2024-05-07 07:15 | Outpatient (REF) | payer MEDICAID, SELFPAY ==
[2024-05-07 07:40] LABS: Basophils Percent Auto 0.8 % (0-2); Eosinophils Absolute Auto 0.1 X10*3/uL (0.0-0.4); Eosinophils Percent Auto 2.8 % (0-4); Hematocrit 27.3 % (37.0-47.0); Hemoglobin 7.7 g/dl (12.0-16.0); Imm Gran Abs Auto 0.01 X10*3/uL (0.00-0.03); Imm Gran Pct Auto 0.3 % (0.0-0.4); Immature Retic Fraction 10.5 % (3.0-15.9); Lymphocytes Absolute Auto 1.4 X10*3/uL (1.2-4.9); Lymphocytes Percent Auto 34.9 % (20-40); MANUAL DIFF FLAG SCAN; Mean Corpuscular HGB Conc 28.2 g/dl (31.0-35.0); Mean Corpuscular Hemoglobin 19.9 pg (27.0-33.0); Mean Corpuscular Volume 70.7 fL (80.0-98.0); Mean Platelet Volume 10.1 fL (9.4-12.3); Monocytes Absolute Auto 0.3 X10*3/uL (0.1-1.2); Monocytes Percent Auto 8.5 % (2-11); Neutrophils Percent Auto 52.7 % (45-73); Platelet Count 287 X10*3/uL (160-400); Red Blood Count 3.86 X10*6/uL (4.20-5.50); Red Cell Distribution Width 16.9 % (11.0-16.0); Retic HGB Equivalent 17.1 pg (30.0-35.0); Reticulocyte Percent 0.8 % (0.5-1.8); Reticulocytes Absolute 0.029 X10*6/uL (0.026-0.095); SCAN SMEAR FLAG 1; White Blood Count 3.9 X10*3/uL (4.8-10.8)
[2024-05-07 07:58] LABS: Estimated Average Glucose 105 mg/dL; Hemoglobin A1c % 5.3 % (<6.0); SLIDE REVIEW VERIFIED
[2024-05-07 08:33] LABS: Alanine Aminotransferase 25 U/L (0-31); Alkaline Phosphatase 76 U/L (39-117); Anion Gap 13 (12-20); Aspartate Amino Transferase 30 U/L (5-31); Bilirubin Total 0.2 mg/dL (0.0-1.0); Blood Urea Nitrogen 8 mg/dL (9-16); Calcium 8.7 mg/dL (8.4-10.2); Carbon Dioxide 24 mmol/L (22-29); Chloride 111 mmol/L (96-108); Cholesterol 190 mg/dL (<200); Estimated Glomerular Filt Rate > 60; Glucose Random 91 mg/dL (60-115); HDL Cholesterol 105 mg/dL (>40); Iron 9 mcg/dL (30-160); LDL Cholesterol Calculated 74 mg/dL (<100); Percent Iron Saturation 2 % (15-50); Potassium 4.1 mmol/L (3.3-5.1); Sodium 144 mmol/L (135-145); Total Iron Binding Capacity 371 mcg/dL (228-428); Total Protein 6.6 g/dL (6.5-8.0); Triglycerides 59 mg/dL (<150); Unsaturated Iron Binding 362 ug/dL
[2024-05-07 08:50] LABS: Ferritin 4 ng/mL (10-250); Free T4 (Free Thyroxine) 0.87 ng/dL (0.71-1.85); Thyroid Stimulating Hormone 1.41 uIU/mL (0.32-4.0); Vitamin D 25-OH Total 7.8 ng/mL (>30)
[2024-05-07 09:01] LABS: Folate 8.3 ng/mL (> or = 4.0); Vitamin B12 381 pg/mL (200-900)
[2024-05-12 19:48] LABS: Vitamin A 26 mcg/dL (38-98)
[2024-05-13 13:09] LABS: Vitamin B1 11 nmol/L (8-30)
== END 2024-05-07 07:16 | disposition home or self-care (01) ==
LOC: HO.LAB 07:15
PROVIDERS: PCP Internal Medicine; Visit Provider Internal Medicine
DX: D50.9 Iron deficiency anemia, unspecified (principal); E78.00 Pure hypercholesterolemia, unspecified; Z98.84 Bariatric surgery status
CPT/HCPCS: 36415; 80053; 80061; 82306; 82607; 82728; 82746; 83036; 83540; 84425; 84439; 84443; 84590; 85025; 85045

== ENCOUNTER → 2025-01-03 13:01 | Outpatient (BNVA) | payer OTHER, SELFPAY | PROVIDERS: PCP Internal Medicine; Visit Provider Physician Assistant Medical | DX: M77.12 Lateral epicondylitis, left elbow (principal) | CPT/HCPCS: 73080; 99202 ==

== ENCOUNTER 2025-01-19 10:32 | Outpatient (RCR) | payer OTHER, SELFPAY ==
--- NOTE | 2025-01-11 09:09 | MHC.OT.EP ---
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 She reported the pain in 12/20/24. She reports difficulty w/ gripping, grabbing, and heavy lifting. Pt report she is unable to even lift her L UE to put her hair up. She had an X -ray after seeing [facility] at [facility] which was negative for fractures, & joint effusions. Pt denies further diagnostic testing's (MRI, cat scan etc) or Cortisone shots. She presents today w/ decreased ROM ONLY DUE TO PAIN, PROM is excellent , and weakness of her UE. Pt would benefit from skilled OT therapy to address these deficits and RPLOF. If pt. 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 Thank you once again for your referral.
== END 2025-06-27 11:16 | disposition home or self-care (01) ==
LOC: HO.OT 10:32
PROVIDERS: PCP Internal Medicine; Visit Provider Physician Assistant Medical
DX: M77.12 Lateral epicondylitis, left elbow (principal)
CPT/HCPCS: 97035; 97110; 97140; 97166; 97535